=== PATIENT | male | born 1940 | race African-American/Black ===

== ENCOUNTER 2023-04-25 10:19 | Inpatient (IN) | payer OTHER, MEDICAID ==
[~2023-04-25] VITALS: Ht 170.2 cm; Wt 70.0 kg
[~2023-04-25 10:19] MED LIST: BACL10TA PO; CELE200C PO; GABA300C PO; NOR10T GT; SIMV-270 PO; [UNRECOGNIZED DRUG - CODE] OR
[2023-04-25] MEDS ORDERED: SODIUM CHLORIDE 0.9% 1,000 ML IV ONE (10:30)
[2023-04-25 11:15] LABS: Basophils # (auto) 0 10 ^3/uL (0-0.2); Basophils % (auto) 0.7 % (0.0-2.0); Eosinophils # (auto) 0 10 ^3/uL (0-0.8); Eosinophils % (auto) 0.4 % (0.0-7.0); Hematocrit 40.9 % (41.0-53.0); Hemoglobin 13.4 g/dL (13.5-17.5); Lymphocytes # (auto) 1.1 10 ^3/uL (0.4-5.4); Lymphocytes % (auto) 18.5 % (10.0-50.0); Mean Corpuscular Hemoglobin 28.5 pg (28.0-32.0); Mean Corpuscular Hgb Conc. 32.9 g/dL (32.0-36.0); Mean Corpuscular Volume 86.6 fL (80.0-100.0); Monocytes # (auto) 0.3 10 ^3/uL (0-1.3); Monocytes % (auto) 4.9 % (0.0-12.0); Neutrophils # (auto) 4.5 10 ^3/uL (1.6-8.6); Neutrophils % (auto) 75.5 % (37.0-80.0); Red Blood Cells 4.72 10^6/uL (4.5-5.90); Red Cell Distribution Width 14.3 % (11.8-14.3)
[2023-04-25 11:24] LABS: INR 1.01 (0.9-1.15); Prothrombin Time 10.6 sec (9.3-11.8)
[2023-04-25 11:27] LABS: Alanine Aminotransferase 13 U/L (7-40); Albumin 4.3 g/dL (3.2-4.8); Alkaline Phosphatase 61 U/L (46-116); Anion Gap 5 (5-15); Aspartate Aminotransferase 13 U/L (13-40); BUN/Creatinine Ratio 21.2 (10.0-20.0); Blood Urea Nitrogen 24 mg/dL (9-23); Calcium 9.2 mg/dL (8.7-10.4); Carbon Dioxide 28 mmol/L (20-30); Chloride 107 mmol/L (98-107); Glucose 96 mg/dL (74-106); Lipase 57 U/L (12-53); Magnesium 2.1 mg/dL (1.6-2.6); Potassium 4.1 mmol/L (3.5-5.1); Sodium 140 mmol/L (136-145)
[2023-04-25 11:28] LABS: Bilirubin, Total 0.8 mg/dL (0.2-1.0); Total Protein 7.3 g/dL (5.7-8.2)
[2023-04-25] MEDS ORDERED: MORPHINE SULFATE INJ 2 MG/ml SYRG IV PRN (11:45)
[2023-04-25] MEDS ORDERED: hydrALAZINE HCL 20 MG/ML VL IV PRN (11:45)
[2023-04-25] MEDS ORDERED: LISINOPRIL 5 MG TAB PO ONE (11:45)
[2023-04-25] MEDS ORDERED: ACETAMINOPHEN 325 MG TAB PO PRN (11:45)
[2023-04-25] MEDS ORDERED: NITROGLYCERIN 0.4 MG SL TAB SL PRN (11:45)
[2023-04-25] MEDS ORDERED: ASPirin 325 MG TAB PO ONE (11:45)
[2023-04-25 12:31] LABS: Triglycerides 80 mg/dL (< 150)
[2023-04-25 12:32] LABS: LDL Cholesterol 98 mg/dL (< 100)
[2023-04-25 12:33] LABS: Cholesterol 178 mg/dL (< 200); HDL Cholesterol 64 mg/dL (40-59)
[2023-04-25 12:49] LABS: Urine Bacteria NONE SEEN /hpf (None Seen); Urine Blood Negative /uL (Negative); Urine Clarity Clear (Clear); Urine Protein, UAD Negative (Negative); Urine Specific Gravity 1.016 (1.001-1.035); Urine Urobilinogen Normal (Negative); Urine WBC 2 /hpf (0 - 3)
[2023-04-25 12:50] LABS: Urine Color Yellow (Yellow)
[2023-04-25] MEDS: GABAPENTIN 300 MG CAP PO SCH ×2 (14:37→22:37)
[2023-04-25] MEDS: SODIUM CHLORIDE 0.9% 1,000 ML IV SCH (15:25)
[2023-04-25 15:30] VITALS: PULSE 58; RESP 16; O2SAT 93
[2023-04-25 16:04] LABS: Base Excess -0.9 mmol/L (-2.0-2.0)
[2023-04-25] MEDS ORDERED: ALBUTEROL MEDNEB 2.5 mg/3ml NEB NEB PRN (16:30)
[2023-04-25 16:31] VITALS: BP 135/72; PULSE 58; RESP 16; TEMP 97.9; O2SAT 93
[2023-04-25 18:30] VITALS: O2SAT 95
[2023-04-25 19:20] VITALS: PULSE 59; RESP 18; O2SAT 95
[2023-04-25] MEDS ORDERED: ATORVASTATIN 20 MG TAB PO SCH (22:00)
[2023-04-25] MEDS: FAMOTIDINE 20 MG TAB PO SCH (22:38)
[2023-04-25] MEDS: CELECOXIB 100 MG CAP PO SCH (23:54)
[2023-04-26] MEDS: SODIUM CHLORIDE 0.9% 1,000 ML IV SCH (02:48)
[2023-04-26 04:29] LABS: Basophils # (auto) 0 10 ^3/uL (0-0.2); Basophils % (auto) 0.7 % (0.0-2.0); Eosinophils # (auto) 0.2 10 ^3/uL (0-0.8); Eosinophils % (auto) 3.1 % (0.0-7.0); Hematocrit 37.4 % (41.0-53.0); Hemoglobin 12.3 g/dL (13.5-17.5); Lymphocytes # (auto) 1.9 10 ^3/uL (0.4-5.4); Lymphocytes % (auto) 39.6 % (10.0-50.0); Mean Corpuscular Hgb Conc. 32.8 g/dL (32.0-36.0); Mean Corpuscular Volume 85.4 fL (80.0-100.0); Monocytes # (auto) 0.5 10 ^3/uL (0-1.3); Monocytes % (auto) 10.3 % (0.0-12.0); Neutrophils # (auto) 2.2 10 ^3/uL (1.6-8.6); Neutrophils % (auto) 46.3 % (37.0-80.0); Nucleated Red Blood Cells % 0.2 %; Red Blood Cells 4.38 10^6/uL (4.5-5.90); Red Cell Distribution Width 14.4 % (11.8-14.3); White Blood Cell 4.9 10^3/uL (4.4-10.8)
[2023-04-26 04:49] LABS: Albumin 3.5 g/dL (3.2-4.8); Alkaline Phosphatase 48 U/L (46-116); Anion Gap 7 (5-15); Aspartate Aminotransferase 10 U/L (13-40); BUN/Creatinine Ratio 18.6 (10.0-20.0); Bilirubin, Total 0.7 mg/dL (0.2-1.0); Blood Urea Nitrogen 21 mg/dL (9-23); Calcium 8.8 mg/dL (8.7-10.4); Carbon Dioxide 26 mmol/L (20-30); Chloride 108 mmol/L (98-107); Glucose 83 mg/dL (74-106); Potassium 4.2 mmol/L (3.5-5.1); Sodium 141 mmol/L (136-145); Total Protein 6.2 g/dL (5.7-8.2)
[2023-04-26 05:00] LABS: Alanine Aminotransferase 9 U/L (7-40)
[2023-04-26] MEDS: GABAPENTIN 300 MG CAP PO SCH ×3 (05:57→21:51)
[2023-04-26 06:15] VITALS: O2SAT 96
[2023-04-26 07:30] VITALS: O2SAT 97
[2023-04-26] MEDS ORDERED: LISINOPRIL 5 MG TAB PO SCH ×2 (10:00→16:45)
[2023-04-26] MEDS: ASPirin 81 mg TAB PO SCH (10:17)
[2023-04-26] MEDS: ENOXAPARIN SOD 40 MG/0.4 ML SYRINGE SC SCH (10:18)
[2023-04-26] MEDS: CELECOXIB 100 MG CAP PO SCH ×2 (10:31→22:28)
[2023-04-26 11:27] LABS: Folate (Folic Acid) 13.47 ng/mL (>5.38)
[2023-04-26] MEDS: NICOTINE 21MG/24 HR TOPICAL PATCH TD SCH (12:09)
[2023-04-26] MEDS ORDERED: CYANOCOBALAMIN (B-12) 1000 MCG/1 ML VIAL IM ONE (12:30)
[2023-04-26] MEDS ORDERED: LISINOPRIL 5 MG TAB PO ONE (18:00)
[2023-04-26 20:00] VITALS: PULSE 49; RESP 20; O2SAT 99
[2023-04-26] MEDS: FAMOTIDINE 20 MG TAB PO SCH (21:51)
[2023-04-26] MEDS ORDERED: ATORVASTATIN 20 MG TAB PO SCH (22:00)
[2023-04-27] VITALS (9 sets, daily range): BP systolic 104–144; BP diastolic 56–72; PULSE 43–83; RESP 16–19; TEMP 97.8–98.6; O2SAT 94–98
[2023-04-27 06:20] LABS: Anion Gap 7 (5-15); Calcium 8.8 mg/dL (8.7-10.4); Carbon Dioxide 27 mmol/L (20-30); Chloride 107 mmol/L (98-107); Sodium 141 mmol/L (136-145)
[2023-04-27 06:26] LABS: BUN/Creatinine Ratio 16.8 (10.0-20.0); Blood Urea Nitrogen 20 mg/dL (9-23); Glucose 82 mg/dL (74-106); Magnesium 2.2 mg/dL (1.6-2.6)
[2023-04-27] MEDS: GABAPENTIN 300 MG CAP PO SCH ×2 (06:26→15:10)
[2023-04-27 06:33] LABS: Basophils # (auto) 0 10 ^3/uL (0-0.2); Basophils % (auto) 0.9 % (0.0-2.0); Eosinophils # (auto) 0.2 10 ^3/uL (0-0.8); Eosinophils % (auto) 3.3 % (0.0-7.0); Hematocrit 39.1 % (41.0-53.0); Hemoglobin 12.8 g/dL (13.5-17.5); Lymphocytes # (auto) 1.9 10 ^3/uL (0.4-5.4); Lymphocytes % (auto) 34.8 % (10.0-50.0); Mean Corpuscular Hemoglobin 28.1 pg (28.0-32.0); Mean Corpuscular Hgb Conc. 32.6 g/dL (32.0-36.0); Mean Corpuscular Volume 86.1 fL (80.0-100.0); Monocytes # (auto) 0.6 10 ^3/uL (0-1.3); Monocytes % (auto) 10.6 % (0.0-12.0); Neutrophils # (auto) 2.7 10 ^3/uL (1.6-8.6); Neutrophils % (auto) 50.4 % (37.0-80.0); Nucleated Red Blood Cells % 0.1 %; Red Blood Cells 4.55 10^6/uL (4.5-5.90); Red Cell Distribution Width 14.6 % (11.8-14.3); White Blood Cell 5.4 10^3/uL (4.4-10.8)
[2023-04-27 07:07] LABS: RPR Non Reactive (Non Reactive)
[2023-04-27] MEDS: ASPirin 81 mg TAB PO SCH (09:28)
[2023-04-27] MEDS: CELECOXIB 100 MG CAP PO SCH (09:29)
[2023-04-27] MEDS: ENOXAPARIN SOD 40 MG/0.4 ML SYRINGE SC SCH (09:32)
[2023-04-27] MEDS: NICOTINE 21MG/24 HR TOPICAL PATCH TD SCH (09:33)
[2023-04-27] MEDS ORDERED: SPIRONOLACTONE 25 MG TAB PO SCH (10:00)
[2023-04-27] MEDS ORDERED: CYANOCOBALAMIN 500 MCG TAB PO SCH (10:00)
[2023-04-27] MEDS ORDERED: LISINOPRIL 10 MG TAB PO SCH (10:00)
[2023-04-27] MEDS ORDERED: SPIR25TA8 PO (12:38)
[2023-04-27] MEDS ORDERED: CYAN-17 PO (12:38)
[2023-04-27] MEDS ORDERED: ASPI1TAB20 PO (12:38)
[2023-04-27] MEDS ORDERED: NIC21P TOP (12:38)
[2023-04-27] MEDS ORDERED: LISI-275 PO (12:38)
[2023-04-27] MEDS ORDERED: ATOR40TA52 PO (12:38)
== END 2023-04-27 16:33 | disposition home or self-care (01) | DRG 309 ==
LOC: ER 10:19 → EDBD 10:19 → TELE 11:48 → TELE-WESTW 04-26 21:23
PROVIDERS: ADMIT Internal Medicine; ATTEND Student in an Organized Health Care Education/Training Program
DX: I49.5 Sick sinus syndrome (principal); I50.22 Chronic systolic (congestive) heart failure; I42.0 Dilated cardiomyopathy; E86.0 Dehydration; I11.0 Hypertensive heart disease with heart failure; I27.20 Pulmonary hypertension, unspecified; J44.9 Chronic obstructive pulmonary disease, unspecified; F14.10 Cocaine abuse, uncomplicated; R29.6 Repeated falls; I35.2 Nonrheumatic aortic (valve) stenosis with insufficiency; I16.0 Hypertensive urgency; E53.8 Deficiency of other specified B group vitamins; I25.10 Atherosclerotic heart disease of native coronary artery without angina pectoris; Z72.0 Tobacco use; Z71.6 Tobacco abuse counseling
CPT/HCPCS: 36415; 36600; 70450; 70551; 71045; 72125; 73030; 80048; 80053; 80061; 81001; 82306; 82607; 82746; 82805; 83036; 83690; 83735; 83880; 84443; 84484; 85025; 85610; 86141; 86592; 93005; 93306; 93886; 96360; 96361; 97110; 97116; 97163; 97530; G0378

== ENCOUNTER 2023-05-08 13:33 | Emergency (ER) | payer OTHER, MEDICAID ==
[~2023-05-08] VITALS: Ht 172.7 cm; Wt 82.0 kg
[~2023-05-08 13:33] MED LIST changes: +ASPI1TAB20 PO; +ATOR40TA52 PO; +CYAN-17 PO; +LISI-275 PO; +NIC21P TOP; +SPIR25TA8 PO
[2023-05-08] MEDS ORDERED: ONDANSETRON ODT 4 MG TAB PO ONE (14:15)
[2023-05-08] MEDS ORDERED: DICYCLOMINE HCL 10 MG CAP PO ONE (14:15)
[2023-05-08 14:45] LABS: Basophils # (auto) 0 10 ^3/uL (0-0.2); Basophils % (auto) 0.2 % (0.0-2.0); Eosinophils # (auto) 0 10 ^3/uL (0-0.8); Eosinophils % (auto) 0.2 % (0.0-7.0); Hemoglobin 13.3 g/dL (13.5-17.5); Lymphocytes # (auto) 0.8 10 ^3/uL (0.4-5.4); Lymphocytes % (auto) 8.6 % (10.0-50.0); Mean Corpuscular Hemoglobin 28.4 pg (28.0-32.0); Mean Corpuscular Hgb Conc. 33.2 g/dL (32.0-36.0); Mean Corpuscular Volume 85.4 fL (80.0-100.0); Monocytes # (auto) 0.6 10 ^3/uL (0-1.3); Monocytes % (auto) 5.8 % (0.0-12.0); Neutrophils # (auto) 8.1 10 ^3/uL (1.6-8.6); Neutrophils % (auto) 85.2 % (37.0-80.0); Red Blood Cells 4.69 10^6/uL (4.5-5.90); Red Cell Distribution Width 14.5 % (11.8-14.3); White Blood Cell 9.6 10^3/uL (4.4-10.8)
[2023-05-08 15:02] LABS: Alanine Aminotransferase 12 U/L (7-40); Alkaline Phosphatase 62 U/L (46-116); Anion Gap 7 (5-15); Aspartate Aminotransferase 15 U/L (13-40); Bilirubin, Total 0.6 mg/dL (0.2-1.0); Blood Urea Nitrogen 33 mg/dL (9-23); Calcium 9.5 mg/dL (8.7-10.4); Carbon Dioxide 27 mmol/L (20-30); Chloride 106 mmol/L (98-107); Glucose 107 mg/dL (74-106); Magnesium 2.1 mg/dL (1.6-2.6); Potassium 4.6 mmol/L (3.5-5.1); Sodium 140 mmol/L (136-145); Total Protein 6.7 g/dL (5.7-8.2)
[2023-05-08 15:06] LABS: INR 1.04 (0.9-1.15); Partial Thromboplastin Time 34.9 SEC (24.5-34.5); Prothrombin Time 10.9 sec (9.3-11.8)
[2023-05-08 18:56] VITALS: BP 119/51; PULSE 46; RESP 12; TEMP 97.6; O2SAT 97
[2023-05-08] MEDS ORDERED: ACET5SOL5 PO ×2 (23:26)
== END 2023-05-08 19:40 | disposition left against medical advice (07) ==
LOC: EDBD 13:33 → ER 13:33
DX: R42 Dizziness and giddiness (principal); Z79.899 Other long term (current) drug therapy; Z79.82 Long term (current) use of aspirin
CPT/HCPCS: 36415; 71045; 80053; 83735; 83880; 84484; 85025; 85379; 85610; 85730; 93005

== ENCOUNTER 2023-05-19 21:28 | Emergency (ER) | payer OTHER, MEDICAID ==
[~2023-05-19] VITALS: Ht 182.9 cm; Wt 54.8 kg
[2023-05-20] MEDS ORDERED: ALBUAER3 IN (03:29)
[2023-05-20] MEDS ORDERED: AZITTAB PO (03:29)
[2023-05-20 03:30] VITALS: BP 145/80; PULSE 80; RESP 16; TEMP 98.6; O2SAT 97
[2023-05-20] MEDS ORDERED: predniSONE 5 MG TAB PO ONE (03:30)
[2023-05-20] MEDS ORDERED: HYDROcodone-ACET 5/325MG TAB PO ONE (03:30)
== END 2023-05-20 06:01 | disposition home or self-care (01) ==
LOC: EDBD 21:28 → ER 21:28
DX: S76.011A Strain of muscle, fascia and tendon of right hip, initial encounter (principal); M51.36 Other intervertebral disc degeneration, lumbar region; G89.29 Other chronic pain; M25.551 Pain in right hip; M75.31 Calcific tendinitis of right shoulder; J18.9 Pneumonia, unspecified organism; I10 Essential (primary) hypertension; K21.9 Gastro-esophageal reflux disease without esophagitis; E78.5 Hyperlipidemia, unspecified; Z79.82 Long term (current) use of aspirin; Z79.2 Long term (current) use of antibiotics; Z79.899 Other long term (current) drug therapy; X58.XXXA Exposure to other specified factors, initial encounter; Y93.89 Activity, other specified; Y92.89 Other specified places as the place of occurrence of the external cause; Y99.8 Other external cause status
CPT/HCPCS: 72131; 72192; 73200; 93005; 99284; J7512

== ENCOUNTER 2024-10-26 12:57 | Inpatient (IN) | payer OTHER, MEDICAID ==
[~2024-10-26] VITALS: Ht 177.8 cm; Wt 62.2 kg
[~2024-10-26 12:57] MED LIST changes: +ALBUAER3 IN; +AZITTAB PO
--- NOTE | 2024-10-26 13:36 | ED.PDOC ---
General HPI Comments PMHx: Dementia, GERD, High Lipids SHx: Hip Sx Social Hx: Occasional Alcohol use, Tobacco use but Denies Substance use HPI: Poor Historian. 84-year-old male accompanied by his family member at bedside. Patient states having 2-3 day history of urinary symptoms of hematuria burning with urination generalized weakness and dizziness. Patient ambulatory in the ED. Denies any other acute symptoms. REVIEW OF SYSTEMS: CONSTITUTIONAL: Denies acute: fever, diaphoresis, chills, HEAD: Denies acute: headache, photophobia Eyes: Denies acute: Double vision, vision loss, eye pain, eye discharge. EARS: Denies acute: tinnitus, hearing loss, ear discharge, ear pain, THROAT: Denies acute: sore throat, swelling, difficulty swallowing , pain with swallowing, change in voice. NECK: Denies acute: neck pain, neck swelling, stiff neck. HEART: Denies acute : chest pain, palpitations, LUNGS: Denies acute: SOB, wheezing, cough, hemoptysis ABDOMEN: Denies acute: abdominal pain, Nausea, Vomiting, diarrhea, melena , hematemesis, hematochezia SKIN: Denies acute: rash, redness, lesions, itchiness. EXTREMITIES: Denies acute: calf pain, numbness, tingling, weakness, denies pain in extremity. Denies acute: Low back pain. Neuro: Denies acute: focal neurological deficit, motor or sensory focal neurological deficit, tremors, seizure like activity, confusion, change in mental status, loss of bowel or bladder function, cauda equina like symptoms. : Denies acute: flank pain, PSYCH: Denies acute: hallucination, suicidal ideation, homicidal ideation. PHYSICAL EXAM: General: ----mild to moderate----acute distress, awake and alert. Head: normocephalic, atraumatic. Neck: supple, trachea is midline, no swelling. Throat: Normal phonation. Eyes:, no erythema, no purulent discharge, no proptosis, no icterus. Heart: regular rate, regular rhythm, no significant murmur appreciated. Lungs: no apparent respiratory distress, Able to speak in full sentences. No wheezing, no rhonchi, no crackles. No stridors Clear to auscultation bilaterally. Abdomen: Suprapubic minimal tender to palpation, non distended, soft, no guarding, no rebound, + bowel sounds. Neuro: Awake, Alert, oriented to name, self, situation, follows commands. At baseline per family member. GCS=15. Speech is normal. Skin: no petechia, no purpura, no cyanosis, non-pale, not jaundice. Lower extremities: --no - Pitting edema no deformity, no focal swelling, no calf TTP. Makes eye contact. moves all four extremities. Face: no apparent facial droop. Ambulating in the ED independently. ED COURSE: Time Seen by MD: 13:30 Primary Care Provider: LINUS Reviewed notes: Nurses Notes, Allergies Allergies: Coded Allergies: NO KNOWN ALLERGIES (Unverified , 12/19/13) Home Meds Active Scripts Albuterol Sulfate (VENTOLIN MDI) 90 Mcg Ih, 1 PUFF IN Q4HR, #1 INH As needed for cough nasal congestion shortness of breath or wheeze Prov:JULIA GRANADOS [employer] LIBRARIAN 05/20/23 Azithromycin (Zithromax Z-Pk) 250 Mg Tab, 1 TAB PO DAILY for 5 Days, #6 TAB 2 tablets today then start 1 tablet tomorrow for 5 days Prov:JULIA GRANADOS [employer]ARIAN 05/20/23 Aspirin (Aspir-81) 81 Mg Tab, 1 TAB PO DAILY, #30 TAB 3 Refills Prov:TAMI LEHMAN RESIDENT 04/27/23 Atorvastatin Calcium (ATORVASTATIN CALCIUM) 40 Mg Tab, 1 TAB PO DAILY, #30 TAB 3 Refills Prov:TAMI LEHMAN RESIDENT 04/27/23 Cyanocobalamin (B12) 1,000 Mcg Cap, 1000 MCG PO DAILY for 30 Days, #30 CAP 2 Refills Prov:TAMI LEHMAN RESIDENT 04/27/23 Spironolactone (Spironolactone) 25 Mg Tab, 1 TAB PO DAILY for 30 Days, #30 TAB 3 Refills Prov:TAMI LEHMAN RESIDENT 04/27/23 Lisinopril (Lisinopril) 5 Mg Tab, 5 MG PO DAILY for 30 Days, #30 TAB 3 Refills Prov:TAMI LEHMAN RESIDENT 04/27/23 Nicotine (Nicoderm 21MG/24HR) 1 Patch Ph, 1 PATCH TOP DAILY, #28 PATCH 1 Refill Prov:TAMI LEHMAN RESIDENT 04/27/23 Reported Medications Simvastatin (Zocor) 20 Mg Tab, 20 MG PO DAILY, #30 MG 0 Refills 12/19/13 Celecoxib (Celebrex) 200 Mg Cap, 200 MG PO BID, CAP 12/19/13 Gabapentin (Neurontin) 300 Mg Cap, 300 MG PO TID, CAP 12/19/13 Baclofen (Baclofen) 10 Mg Tab, 10 MG PO TID, TAB 12/19/13 Hydrocodone-Acetaminophen ([place] 10/325MG) 1 Tab Tb, 1 TAB GT TID 12/19/13 Ranitidine Hcl (EQ RANITIDINE) 150 Mg Tab, 150 MG OR BID, TAB 12/19/13 Information Source: Patient, Relative Past Medical History PAST MEDICAL HISTORY: Dementia, GERD, High Lipids, HTN Surgical History (Other): Hip Sx Family History Family History: Reviewed,noncontributory to illness, Unknown Social History Smoker: Cigarettes Alcohol: Occasionally Drugs: Denies Drug Use Lives In: Home Was a procedure done? Was a procedure done?: No Differential Diagnosis Kidney stone (Female): N/A Kidney stone (Male): N/A Urinary Problem (Male): Bladder Outlet, Bladder Obstruction, Epididymitis, Prostatitis, Plelonephritis, Post op Complications, Renal Failure, Urethritis, Urinary Retention, Urolithiasis, UTI, Other X-Ray, Labs, Meds, VS Vital Signs Date Time Temp Pulse Resp B/P (MAP) Pulse Ox O2 Delivery O2 Flow Rate FiO2 10/26/24 14:15 69 17 95 Room Air 10/26/24 14:15 98.0 77 16 102/72 (82) 95 98.0 10/26/24 13:32 98.3 75 21 118/74 (89) 96 98.3 Lab Test 10/26/24 17:06 10/26/24 13:50 10/26/24 13:28 Range/Units Urine Creatinine 45.62 30.0-125.0 mg/dL Urine Sodium 77 40-220 mmol/L White Blood Count 6.4 4.4-10.8 10^3/uL Red Blood Count 4.70 4.5-5.90 10^6/uL Hemoglobin 13.2 L 13.5-17.5 g/dL Hematocrit 40.2 L 41.0-53.0 % Mean Corpuscular Volume 85.4 80.0-100.0 fL Mean Corpuscular Hemoglobin 28.1 28.0-32.0 pg Mean Corpuscular Hemoglobin Concent 32.9 32.0-36.0 g/dL Red Cell Distribution Width 13.9 11.8-14.3 % Platelet Count 206 140-450 10^3/uL Mean Platelet Volume 7.8 6.9-10.8 fL Neutrophils (%) (Auto) 63.9 37.0-80.0 % Lymphocytes (%) (Auto) 24.7 10.0-50.0 % Monocytes (%) (Auto) 8.7 0.0-12.0 % Eosinophils (%) (Auto) 1.8 0.0-7.0 % Basophils (%) (Auto) 0.9 0.0-2.0 % Neutrophils # (Auto) 4.1 1.6-8.6 10 ^3/uL Lymphocytes # (Auto) 1.6 0.4-5.4 10 ^3/uL Monocytes # (Auto) 0.6 0-1.3 10 ^3/uL Eosinophils # (Auto) 0.1 0-0.8 10 ^3/uL Basophils # (Auto) 0.1 0-0.2 10 ^3/uL Nucleated Red Blood Cells 0.0 % Sodium Level 139 136-145 mmol/L Potassium Level 4.2 3.5-5.1 mmol/L Chloride Level 106 98-107 mmol/L Carbon Dioxide Level 28 20-31 mmol/L Anion Gap 5 5-15 Blood Urea Nitrogen 31 H 9-23 mg/dL Creatinine 1.60 H 0.700-1.30 mg/dL Glomerular Filtration Rate Calc 42 >90 mL/min BUN/Creatinine Ratio 19.4 10.0-20.0 Serum Glucose 92 74-106 mg/dL Lactic Acid Level 1.3 0.4-2.0 mmol/L Calcium Level 10.1 8.7-10.4 mg/dL Total Bilirubin 0.8 0.2-1.0 mg/dL Aspartate Amino Transferase (AST) 18 13-40 U/L Alanine Aminotransferase (ALT) 10 7-40 U/L Alkaline Phosphatase 64 46-116 U/L Troponin I High Sensitivity 14 </=54 ng/L Total Protein 7.6 5.7-8.2 g/dL Albumin 4.6 3.2-4.8 g/dL Urine Color Light-yellow Yellow Urine Clarity Clear Clear Urine pH 5.0 5.0-9.0 Urine Specific [place] 1.010 1.001-1.035 Urine Protein Negative Negative Urine Ketones Negative Negative Urine Blood Negative Negative /uL Urine Nitrite Negative Negative Urine Bilirubin Negative Negative Urine Urobilinogen Normal Negative mg/dL Urine Leukocyte Esterase Negative Negative /uL Urine RBC <1 0 - 3 /hpf Urine Microscopic WBC 1 0-3 /HPF Urine Squamous Epithelial Cells Few <5 /hpf Urine Bacteria None seen None Seen /hpf Urine Glucose Normal Normal mg/dL Current Medications Medications (Trade) Dose Ordered Sig/Dom Route Start Time Stop Time Status Last Admin Ceftriaxone Sodium 50 ml @ 100 mls/hr ONCE ONCE IV 10/26/24 13:30 10/26/24 13:59 DC 10/26/24 14:21 Sodium Chloride 1,000 ml @ 1,000 mls/hr Q1H ONCE IV 10/26/24 13:45 10/26/24 14:44 DC 10/26/24 14:14 Sepsis from UTI and nephrolithiasis Secondary Diagnosis: Hypertension Morbid Obesity Septic Shock Acute Respiratory Failure due to Atelectasis PROCEDURE(s): ABPL - CT AB PEL WO CON-NO ORAL OR IV REASON: Urinary symptoms, hematuria ORDER NUMBER(s): [id number], ACCESSION NUMBER(s): [id number] CLINICAL INFORMATION: 84 years old, Male; Urinary symptoms, hematuria. TECHNIQUE: Axial CT images of the abdomen and pelvis were obtained without IV contrast. Coronal and sagittal reformatted images were obtained, reviewed, and stored. Evaluation of the parenchymal organs is limited without IV contrast. Evaluation of the bowel and mesentery is limited without oral contrast. All CT scans at this medical facility are performed using dose modulation techniques as appropriate to a performed exam including the following: Automated exposure control was utilized; adjustment of the MA and/or KV according to patient size; and use of iterative reconstruction technique. CTDIvol = 8.64 mGy DLP = 394.09 mGy-cm COMPARISON: None FINDINGS: Lung bases: Mild atelectasis in the lung bases. Liver: Grossly unremarkable in its noncontrast enhanced appearance. No abnormal density or focal lesion identified. Biliary: No calcified gallstones or biliary ductal dilatation. Spleen: Very small spleen. Pancreas: Poorly visualized due to motion artifact. Adrenal glands: Poorly visualized due to motion artifact. Kidneys: No hydronephrosis. Multiple bilateral renal cysts. No renal or ureteral calculi visualized. Ureters are not well evaluated due to motion artifact. Aorta/Vascular: Dense atherosclerotic calcification. No abdominal aortic aneurysm. Retroperitoneum: Limited evaluation due to motion artifact. Bowel/mesentery: Nonspecific nondilated fluid-filled small bowel loops. No small bowel obstruction. Appendix is not visualized. Moderate stool in the colon. Pelvic organs: Beam hardening artifact from the bilateral hip prostheses limits visualization. Bladder: Poorly visualized due to beam hardening artifact. Abdominal wall: Grossly unremarkable. Bones: No acute fracture or suspicious intraosseous lesion. Bilateral hip prostheses appear intact, although the femoral components are incompletely visualized. There is associated prominent beam hardening artifact which limits evaluation of the pelvis. IMPRESSION: 1. Motion limited study. Examination of the pelvic structures also limited due to beam hardening artifact from the patient's bilateral hip prostheses. 2. No hydronephrosis. No renal or ureteral calculi visualized, although the ur eters are poorly evaluated due to motion artifact. 3. Nonspecific nondilated fluid-filled small bowel loops. Findings may be seen with ileus or enteritis in the appropriate clinical setting. No small bowel obstruction. 4. Additional findings as described above. [place] [id number] Ph: [phone] DIAGNOSTIC IMAGING Diagnostic Imaging Report : [id number] Signed PATIENT: GAGAN CUEVAS ACCT: [id number] UNIT: [id number] : 1940 LOC: ER ROOM / BED: / AGE / SEX: 84 / M ADM STATUS: REG ER SERVICE 1336 ORDERING PHYSICIAN: SUDHIR BELTRAN DO PROCEDURE(s): CXRP - CHEST PORTABLE REASON: dizzy, weak ORDER NUMBER(s): [id number], ACCESSION NUMBER(s): [id number] EXAM: XY CHEST PORTABLE REASON FOR EXAM: dizzy, weak TECHNIQUE: 1 view of the chest COMPARISON: XY CHEST PORTABLE on DOS: 05/08/23 FINDINGS: LUNGS: Oval-shaped presumed pulmonary mass with possible spiculation located within the left upper lobe measuring up to 3.1 cm. MEDIASTINUM: Unremarkable BONES: No acute osseous abnormality. OTHER: None IMPRESSION: 1. Oval-shaped presumed pulmonary mass with possible spiculation located within the left upper lobe measuring up to 3.1 cm. 2. Recommend further evaluation with CT of the chest with contrast. ATED BY: DEVYN ZHU MD DICTATED DATE/TIME: 10/26/24 1403 SIGNED BY: DEVYN ZHU MD SIGNED DATE/TIME: 10/26/24 140 CC: Time of 1ST Reevaluation: 14:00 Reevaluation 1ST: Unchanged Patient Education/Counseling: Diagnosis, Treatment Family Education/Counseling: Diagnosis, Treatment Comments Patient presented with the above HPI.---urinary symptoms/hematuria---workup was initiated. patient was found with the above mentioned diagnosis. the following medications were ordered: please refer to order lists of meds and tests obtained by myself Dr. Beltran. Patient ED course and VS have been stabilized. Patient has been reassessed in the ED and remained in a stable condition. Patient/family voices understanding and is agreeable with plan. Patient has been observed in the ED adequate length of time to insure improvement/stability. Escalation of care considered: Consideration of escalation to observation or admission Antibiotics initiated. Patient was ADMITTED to the medicine team for further evaluation and treatment of their presentation. All the reports of any imaging studies that were ordered by myself were reviewed by myself. Departure 1 Departure Time of Disposition: 14:54 Impression: Primary Impression: Lung mass Additional Impressions: Abnormal finding on CT scan Hematuria Disposition: ADMITTED INPATIENT Condition: Guarded Discharged With: Self Critical Care Note Critical Care Time?: No I personally scribed for SUDHIR BELTRAN DO ([email or web address]) on 10/26/24 at 13:36. Electronically submitted by Petros Belle ([email or web address]). I personally scribed for SUDHIR BELTRAN DO ([email or web address]) on 10/26/24 at 14:53. Electronically submitted by Petros Belle ([email or web address]). SUDHIR BELTRAN DO Oct 26, 2024 13:36
[2024-10-26 14:03] LABS: Basophils # (auto) 0.1 10 ^3/uL (0-0.2); Basophils % (auto) 0.9 % (0.0-2.0); Eosinophils # (auto) 0.1 10 ^3/uL (0-0.8); Eosinophils % (auto) 1.8 % (0.0-7.0); Hematocrit 40.2 % (41.0-53.0); Hemoglobin 13.2 g/dL (13.5-17.5); Lymphocytes # (auto) 1.6 10 ^3/uL (0.4-5.4); Lymphocytes % (auto) 24.7 % (10.0-50.0); Mean Corpuscular Hemoglobin 28.1 pg (28.0-32.0); Mean Corpuscular Hgb Conc. 32.9 g/dL (32.0-36.0); Mean Corpuscular Volume 85.4 fL (80.0-100.0); Monocytes # (auto) 0.6 10 ^3/uL (0-1.3); Monocytes % (auto) 8.7 % (0.0-12.0); Neutrophils # (auto) 4.1 10 ^3/uL (1.6-8.6); Neutrophils % (auto) 63.9 % (37.0-80.0); Platelet Count (auto) 206 10^3/uL (140-450); Red Cell Distribution Width 13.9 % (11.8-14.3); White Blood Cell 6.4 10^3/uL (4.4-10.8)
--- NOTE | 2024-10-26 14:06 | DVH ---
EXAM: XY CHEST PORTABLE REASON FOR EXAM: dizzy, weak TECHNIQUE: 1 view of the chest COMPARISON: XY CHEST PORTABLE on DOS: 05/08/23 FINDINGS: LUNGS: Oval-shaped presumed pulmonary mass with possible spiculation located within the left upper lo be measuring up to 3.1 cm. MEDIASTINUM: Unremarkable BONES: No acute osseous abnormality. OTHER: None IMPRESSION: 1. Oval-shaped presumed pulmonary mass with possible spiculation located within the left upper lobe m easuring up to 3.1 cm. 2. Recommend further evaluation with CT of the chest with contrast.
[2024-10-26] MEDS: SODIUM CHLORIDE 0.9% 1,000 ML IV ONE (14:14)
[2024-10-26] MEDS: cefTRIAXone 1GM/50ML D5W 50 ML IV ONE (14:21)
--- NOTE | 2024-10-26 14:23 | DVH ---
CLINICAL INFORMATION: 84 years old, Male; Urinary symptoms, hematuria. TECHNIQUE: Axial CT images of the abdomen and pelvis were obtained without IV contrast. Coronal and s agittal reformatted images were obtained, reviewed, and stored. Evaluation of the parenchymal organs is limited without IV contrast. Evaluation of the bowel and mesentery is limited without oral contras t. All CT scans at this medical facility are performed using dose modulation techniques as appropriat e to a performed exam including the following: Automated exposure control was utilized; adjustment of the MA and/or KV according to patient size; and use of iterative reconstruction technique. CTDIvol = 8.64 mGy DLP = 394.09 mGy-cm COMPARISON: None FINDINGS: Lung bases: Mild atelectasis in the lung bases. Liver: Grossly unremarkable in its noncontrast enhanced appearance. No abnormal density or focal lesi on identified. Biliary: No calcified gallstones or biliary ductal dilatation. Spleen: Very small spleen. Pancreas: Poorly visualized due to motion artifact. Adrenal glands: Poorly visualized due to motion artifact. Kidneys: No hydronephrosis. Multiple bilateral renal cysts. No renal or ureteral calculi visualized. Ureters are not well evaluated due to motion artifact. Aorta/Vascular: Dense atherosclerotic calcification. No abdominal aortic aneurysm. Retroperitoneum: Limited evaluation due to motion artifact. Bowel/mesentery: Nonspecific nondilated fluid-filled small bowel loops. No small bowel obstruction. A ppendix is not visualized. Moderate stool in the colon. Pelvic organs: Beam hardening artifact from the bilateral hip prostheses limits visualization. Bladder: Poorly visualized due to beam hardening artifact. Abdominal wall: Grossly unremarkable. Bones: No acute fracture or suspicious intraosseous lesion. Bilateral hip prostheses appear intact, a lthough the femoral components are incompletely visualized. There is associated prominent beam harden ing artifact which limits evaluation of the pelvis. IMPRESSION: 1. Motion limited study. Examination of the pelvic structures also limited due to beam hardening gabriel fact from the patient's bilateral hip prostheses. 2. No hydronephrosis. No renal or ureteral calculi visualized, although the ureters are poorly evalua blanche due to motion artifact. 3. Nonspecific nondilated fluid-filled small bowel loops. Findings may be seen with ileus or enteriti s in the appropriate clinical setting. No small bowel obstruction. 4. Additional findings as described above.
[2024-10-26 14:34] LABS: Alanine Aminotransferase 10 U/L (7-40); Albumin 4.6 g/dL (3.2-4.8); Alkaline Phosphatase 64 U/L (46-116); Anion Gap 5 (5-15); Aspartate Aminotransferase 18 U/L (13-40); BUN/Creatinine Ratio 19.4 (10.0-20.0); Bilirubin, Total 0.8 mg/dL (0.2-1.0); Calcium 10.1 mg/dL (8.7-10.4); Carbon Dioxide 28 mmol/L (20-31); Chloride 106 mmol/L (98-107); Glucose 92 mg/dL (74-106); Potassium 4.2 mmol/L (3.5-5.1); Sodium 139 mmol/L (136-145); Total Protein 7.6 g/dL (5.7-8.2)
[2024-10-26 14:35] LABS: Blood Urea Nitrogen 31 mg/dL (9-23)
[2024-10-26] MEDS ORDERED: HYDROmorphone HCL 2 MG/ML VL/or syr IV PRN (17:15)
[2024-10-26] MEDS ORDERED: DOCUSATE SOD 100 MG CAP PO PRN (17:15)
[2024-10-26] MEDS ORDERED: ONDANSETRON HCL 4 MG/2 ML VIAL IV PRN (17:15)
--- NOTE | 2024-10-26 17:23 | DVHHP2 ---
Admitting Diagnosis: Hematuria History of Present Illness Poor Historian. 84-year-old male accompanied by his family member at bedside. Patient states having 2-3 day history of urinary symptoms of hematuria burning with urination generalized weakness and dizziness. Patient ambulatory in the ED. Denies any other acute symptoms. Past Medical History: Past Surgical History: REVIEW OF SYSTEMS: CONSTITUTIONAL: Denies acute: fever, diaphoresis, chills, HEAD: Denies acute: headache, photophobia Eyes: Denies acute: Double vision, vision loss, eye pain, eye discharge. EARS: Denies acute: tinnitus, hearing loss, ear discharge, ear pain, THROAT: Denies acute: sore throat, swelling, difficulty swallowing , pain with swallowing, change in voice. NECK: Denies acute: neck pain, neck swelling, stiff neck. HEART: Denies acute : chest pain, palpitations, LUNGS: Denies acute: SOB, wheezing, cough, hemoptysis ABDOMEN: Denies acute: abdominal pain, Nausea, Vomiting, diarrhea, melena , hematemesis, hematochezia SKIN: Denies acute: rash, redness, lesions, itchiness. EXTREMITIES: Denies acute: calf pain, numbness, tingling, weakness, denies pain in extremity. Denies acute: Low back pain. Neuro: Denies acute: focal neurological deficit, motor or sensory focal neurological deficit, tremors, seizure like activity, confusion, change in mental status, loss of bowel or bladder function, cauda equina like symptoms. : Denies acute: flank pain, PSYCH: Denies acute: hallucination, suicidal ideation, homicidal ideation. PAST MEDICAL HISTORY: Dementia, GERD, High Lipids, HTN Surgical History (Other): Hip Sx Family History Family History: Reviewed,noncontributory to illness, Unknown Social History Smoker: Cigarettes Alcohol: Occasionally Drugs: Denies Drug Use Lives In: Home Patient Family History: Hypertension G8 MOTHER, Onset:50's - 60 Allergies: Coded Allergies: NO KNOWN ALLERGIES (Unverified , 12/19/13) Home Meds Active Scripts Albuterol Sulfate (VENTOLIN MDI) 90 Mcg Ih, 1 PUFF IN Q4HR, #1 INH As needed for cough nasal congestion shortness of breath or wheeze Prov:JULIA GRANADOS [employer] SUPER[employer] 05/20/23 Azithromycin (Zithromax Z-Pk) 250 Mg Tab, 1 TAB PO DAILY for 5 Days, #6 TAB 2 tablets today then start 1 tablet tomorrow for 5 days Prov:JULIA GRANADOS [employer]PER[employer] 05/20/23 Aspirin (Aspir-81) 81 Mg Tab, 1 TAB PO DAILY, #30 TAB 3 Refills Prov:TAMI LEHMAN [facility] 04/27/23 Atorvastatin Calcium (ATORVASTATIN CALCIUM) 40 Mg Tab, 1 TAB PO DAILY, #30 TAB 3 Refills Prov:TAMI LEHMAN [facility] 04/27/23 Cyanocobalamin (B12) 1,000 Mcg Cap, 1000 MCG PO DAILY for 30 Days, #30 CAP 2 Refills Prov:TAMI LEHMAN [facility] 04/27/23 Spironolactone (Spironolactone) 25 Mg Tab, 1 TAB PO DAILY for 30 Days, #30 TAB 3 Refills Prov:TAMI LEHMAN [facility] 04/27/23 Lisinopril (Lisinopril) 5 Mg Tab, 5 MG PO DAILY for 30 Days, #30 TAB 3 Refills Prov:TAMI LEHMAN [facility] 04/27/23 Nicotine (Nicoderm 21MG/24HR) 1 Patch Ph, 1 PATCH TOP DAILY, #28 PATCH 1 Refill Prov:TAMI LEHMAN [facility] 04/27/23 Reported Medications Simvastatin (Zocor) 20 Mg Tab, 20 MG PO DAILY, #30 MG 0 Refills 12/19/13 Celecoxib (Celebrex) 200 Mg Cap, 200 MG PO BID, CAP 12/19/13 Gabapentin (Neurontin) 300 Mg Cap, 300 MG PO TID, CAP 12/19/13 Baclofen (Baclofen) 10 Mg Tab, 10 MG PO TID, TAB 12/19/13 Hydrocodone-Acetaminophen ([place] 10/325MG) 1 Tab Tb, 1 TAB GT TID 12/19/13 Ranitidine Hcl (EQ RANITIDINE) 150 Mg Tab, 150 MG OR BID, TAB 12/19/13 Current Medications Current Medications Medications (Trade) Dose Ordered Sig/Dom Route PRN Reason Start Time Stop Time Status Last Admin Sodium Chloride (Saline Lock Ns) 10 ml Q8HR IV 10/26/24 22:00 Docusate Sodium (Colace Capsule) 100 mg BIDPRN PRN PO FOR CONSTIPATION 10/26/24 17:15 Acetaminophen (Tylenol Tablet) 650 mg Q6HP PRN PO PAIN SCALE 1-3 OR TEMP>100.4 10/26/24 17:15 Acetaminophen/ Hydrocodone Bitart ([place] 5/325MG Tab) 1 tab Q4HP PRN PO MODERATE PAIN (4-6 PAIN SCALE) 10/26/24 17:15 Hydromorphone HCl (Dilaudid Injection) 0.5 mg Q4HP PRN IV SEVERE PAIN (7-10 PAIN SCALE) 10/26/24 17:15 Ondansetron HCl (Zofran) 4 mg Q4HP PRN IV NAUSEA / VOMITING 10/26/24 17:15 Ceftriaxone Sodium 50 ml @ 100 mls/hr DAILY IV 10/27/24 10:00 Baclofen (Liorisal Tablet) 10 mg TID PO 10/26/24 22:00 UNV Gabapentin (Neurontin Capsule) 300 mg TID PO 10/26/24 22:00 UNV Nicotine (Nicoderm 21MG/ 24HR) 1 patch DAILY TD 10/27/24 10:00 UNV Patient Own Medication 1 tab DAILY PO 10/27/24 10:00 UNV Patient Own Medication 1,000 mcg DAILY PO 10/27/24 10:00 UNV Patient Own Medication 150 mg BID OR 10/26/24 22:00 UNV Patient Own Medication 20 mg DAILY PO 10/27/24 10:00 UNV Vital Signs Vital Signs Date Time Temp Pulse Resp B/P (MAP) Pulse Ox O2 Delivery O2 Flow Rate FiO2 10/26/24 14:15 69 17 95 Room Air 10/26/24 14:15 98.0 102/72 (82) 98.0 Physical Exam -84 years old male, frail, sitting on chair. No apparent distress HEENT-atraumatic, normocephalic Heart-regular rate and rhythm Lungs clear to auscultate Abdomen soft nontender nondistended Musculoskeletal-no edema cyanosis Neuro-AO x3, no focal deficits Results Labs Test 10/26/24 13:50 Range/Units White Blood Count 6.4 4.4-10.8 10^3/uL Red Blood Count 4.70 4.5-5.90 10^6/uL Hemoglobin 13.2 L 13.5-17.5 g/dL Hematocrit 40.2 L 41.0-53.0 % Mean Corpuscular Volume 85.4 80.0-100.0 fL Mean Corpuscular Hemoglobin 28.1 28.0-32.0 pg Mean Corpuscular Hemoglobin Concent 32.9 32.0-36.0 g/dL Red Cell Distribution Width 13.9 11.8-14.3 % Platelet Count 206 140-450 10^3/uL Mean Platelet Volume 7.8 6.9-10.8 fL Neutrophils (%) (Auto) 63.9 37.0-80.0 % Lymphocytes (%) (Auto) 24.7 10.0-50.0 % Monocytes (%) (Auto) 8.7 0.0-12.0 % Eosinophils (%) (Auto) 1.8 0.0-7.0 % Basophils (%) (Auto) 0.9 0.0-2.0 % Neutrophils # (Auto) 4.1 1.6-8.6 10 ^3/uL Lymphocytes # (Auto) 1.6 0.4-5.4 10 ^3/uL Monocytes # (Auto) 0.6 0-1.3 10 ^3/uL Eosinophils # (Auto) 0.1 0-0.8 10 ^3/uL Basophils # (Auto) 0.1 0-0.2 10 ^3/uL Nucleated Red Blood Cells 0.0 % Sodium Level 139 136-145 mmol/L Potassium Level 4.2 3.5-5.1 mmol/L Chloride Level 106 98-107 mmol/L Carbon Dioxide Level 28 20-31 mmol/L Anion Gap 5 5-15 Blood Urea Nitrogen 31 H 9-23 mg/dL Creatinine 1.60 H 0.700-1.30 mg/dL Glomerular Filtration Rate Calc 42 >90 mL/min BUN/Creatinine Ratio 19.4 10.0-20.0 Serum Glucose 92 74-106 mg/dL Lactic Acid Level 1.3 0.4-2.0 mmol/L Calcium Level 10.1 8.7-10.4 mg/dL Total Bilirubin 0.8 0.2-1.0 mg/dL Aspartate Amino Transferase (AST) 18 13-40 U/L Alanine Aminotransferase (ALT) 10 7-40 U/L Alkaline Phosphatase 64 46-116 U/L Troponin I High Sensitivity 14 </=54 ng/L Total Protein 7.6 5.7-8.2 g/dL Albumin 4.6 3.2-4.8 g/dL Primary Diagnosis Hematuria rule out urinary tract infection Lung mass Plan Chest shows lung mass Check CT chest with IV contrast to assess for lung mass Radiology consult for lung biopsy Check UA for hematuria Renal ultrasound to assess for renal abnormalities Check urine sodium, urine creatinine IV fluids for hydration Trend renal function Resume home meds Aware of renal function. In view of possible lung mass may need biopsy. risk is lower than benefit of diagnosing potential lung malignancy. will give iv hydrat ion to optimize renal function. dr. alex consult Full code SCD for DVT prophylaxis No GI prophylaxis needed Plan discussed with: Patient Problems List: (1) Lung mass Status: Acute (2) Hematuria Status: Acute Date of Service: Oct 26, 2024 Billing Provider: ROSS GUERRIER MD Common Visit Codes: [id number] INP/OBS CARE (HIGH) ROSS GUERRIER MD Oct 26, 2024 17:23
[2024-10-26 17:32] LABS: Urine Bacteria None Seen /hpf (None Seen)
[2024-10-26] MEDS: IOHEXOL 300 MG/ML 100ML BOTTLE IJ ONE (17:32)
[2024-10-26 18:05] LABS: Creatinine, Urine 45.62 mg/dL (30.0-125.0)
[2024-10-26 18:11] LABS: Urine Blood Negative /uL (Negative); Urine Clarity Clear (Clear); Urine Color Light-Yellow (Yellow); Urine Protein, UAD Negative (Negative); Urine Squamous Epithelial Cell FEW /hpf (<5); Urine Urobilinogen Normal (Negative); Urine WBC 1 /HPF (0-3)
[2024-10-26 18:15] VITALS: PULSE 66; RESP 16; O2SAT 98
[2024-10-26 18:42] VITALS: BP 135/69; PULSE 71; RESP 16; TEMP 98.1; O2SAT 97
[2024-10-26 20:00] VITALS: PULSE 71; RESP 16; O2SAT 97
[2024-10-26 21:00] VITALS: BP 135/69; PULSE 71; RESP 16; TEMP 98.1; O2SAT 97
[2024-10-26] MEDS: ATORVASTATIN 20 MG TAB PO SCH (22:01)
[2024-10-26] MEDS: BACLOFEN 10 MG TAB PO SCH (22:02)
[2024-10-26] MEDS: SODIUM CHLOR 0.9% PF (SALINE LOCK) 10ML VIAL/SYR IV SCH (22:02)
--- NOTE | 2024-10-26 22:06 | DVH ---
BILATERAL RENAL ULTRASOUND CLINICAL HISTORY: NATHAN on CKD COMPARISON: Correlation made to CT obtained earlier the same day. TECHNIQUE: High-resolution real-time grayscale imaging is performed. FINDINGS: Right kidney: Measures 9.1 cm in length. No hydronephrosis. Normal cortical thickness and echogenici ty. Multiple anechoic cysts are noted, the largest in the lower pole measuring approximately 2.9 cm in diameter. Left kidney: Measures 10.1 cm in length. No hydronephrosis. Normal cortical thickness and echogenici ty. Multiple anechoic cysts are noted, the largest in the midpole measuring approximately 4 cm in kashif meter. Bladder: Underdistended. No discrete intraluminal lesions as visualized. IMPRESSION: No hydronephrosis. Multiple bilateral renal cysts.
[2024-10-26] MEDS: HYDROcodone-ACET 5/325MG TAB PO PRN (22:11)
[2024-10-26] MEDS: LACTATED RINGER'S 1,000 ML IV ONE (22:12)
[2024-10-27] VITALS (7 sets, daily range): BP systolic 100–143; BP diastolic 53–63; PULSE 48–80; RESP 15–18; TEMP 97.9–98.8; O2SAT 94–99
[2024-10-27] MEDS: cefTRIAXone 1GM/50ML D5W 50 ML IV SCH (09:14)
[2024-10-27] MEDS: GABAPENTIN 300 MG CAP PO SCH (09:15)
[2024-10-27] MEDS: NICOTINE 21MG/24 HR TOPICAL PATCH TD SCH (09:16)
[2024-10-27] MEDS: CYANOCOBALAMIN 500 MCG TAB PO SCH (09:16)
[2024-10-27] MEDS ORDERED: PATIENTS OWN MEDICATION (Atorvastatin Calcium 1 TAB) PO SCH (10:00)
[2024-10-27 10:38] LABS: INR 1.03 (0.9-1.15); Partial Thromboplastin Time 35.9 SEC (24.5-34.5); Prothrombin Time 10.9 sec (9.3-11.8)
--- NOTE | 2024-10-27 12:04 | DVHINCON2 ---
Date of service: Oct 27, 2024 Reason for Consultation NATHAN History of Present Illness 84-year-old male past medical history of hypertension and chronic smoker presents to the hospital complaining of blood in the urine. He presented to the ER and upon evaluation was noted to have hemoptysis for which this was worked up by primary medical team. Nephrology consulted due to elevated creatinine of 1.6. He is status post ultrasound of the kidney which shows renal cysts but no signs of obstruction. His renal function has now returned to baseline function. He reports no further episodes of difficulty urinating and denies any pain or blood in the urine. Allergies: Coded Allergies: NO KNOWN ALLERGIES (Unverified , 10/28/24) Home Meds Active Scripts Albuterol Sulfate (VENTOLIN MDI) 90 Mcg Ih, 1 PUFF IN Q4HR, #1 INH As needed for cough nasal congestion shortness of breath or wheeze Prov:JULIA GRANADOS OFFICE MACHINES TEACHER 05/20/23 Azithromycin (Zithromax Z-Pk) 250 Mg Tab, 1 TAB PO DAILY for 5 Days, #6 TAB 2 tablets today then start 1 tablet tomorrow for 5 days Prov:JULIA GRANADOS OFFICE MACHINES TEACHER 05/20/23 Aspirin (Aspir-81) 81 Mg Tab, 1 TAB PO DAILY, #30 TAB 3 Refills Prov:TAMI LEHMAN RESIDENT 04/27/23 Atorvastatin Calcium (ATORVASTATIN CALCIUM) 40 Mg Tab, 1 TAB PO DAILY, #30 TAB 3 Refills Prov:TAMI LEHMAN RESIDENT 04/27/23 Cyanocobalamin (B12) 1,000 Mcg Cap, 1000 MCG PO DAILY for 30 Days, #30 CAP 2 Refills Prov:TAMI LEHMAN RESIDENT 04/27/23 Spironolactone (Spironolactone) 25 Mg Tab, 1 TAB PO DAILY for 30 Days, #30 TAB 3 Refills Prov:TAMI LEHMAN RESIDENT 04/27/23 Lisinopril (Lisinopril) 5 Mg Tab, 5 MG PO DAILY for 30 Days, #30 TAB 3 Refills Prov:TAMI LEHMAN RESIDENT 04/27/23 Nicotine (Nicoderm 21MG/24HR) 1 Patch Ph, 1 PATCH TOP DAILY, #28 PATCH 1 Refill Prov:TAMI LEHMAN RESIDENT 04/27/23 Reported Medications Simvastatin (Zocor) 20 Mg Tab, 20 MG PO DAILY, #30 MG 0 Refills 12/19/13 Celecoxib (Celebrex) 200 Mg Cap, 200 MG PO BID, CAP 12/19/13 Gabapentin (Neurontin) 300 Mg Cap, 300 MG PO TID, CAP 12/19/13 Baclofen (Baclofen) 10 Mg Tab, 10 MG PO TID, TAB 12/19/13 Hydrocodone-Acetaminophen ([place] 10/325MG) 1 Tab Tb, 1 TAB GT TID 12/19/13 Ranitidine Hcl (EQ RANITIDINE) 150 Mg Tab, 150 MG OR BID, TAB 12/19/13 Current Medications Current Medications Medications (Trade) Dose Ordered Sig/Dom Route PRN Reason Start Time Stop Time Status Last Admin Ceftriaxone Sodium 50 ml @ 100 mls/hr DAILY IV 10/27/24 10:00 10/28/24 08:23 Gabapentin (Neurontin Capsule) 300 mg DAILY PO 10/27/24 10:00 10/28/24 08:23 Nicotine (Nicoderm 21MG/ 24HR) 1 patch DAILY TD 10/27/24 10:00 10/28/24 08:26 Patient Own Medication 1 tab DAILY PO 10/27/24 10:00 10/26/24 17:55 DC Cyanocobalamin (Vitamin B-12) 1,000 mcg DAILY PO 10/27/24 10:00 10/28/24 08:25 Sodium Chloride 1,000 ml @ 60 mls/hr [id number] IV 10/27/24 11:45 10/28/24 04:25 Acetaminophen/ Hydrocodone Bitart ([place] 10/325MG Tab) 1 tab Q4HP PRN PO MODERATE PAIN (4-6 PAIN SCALE) 10/28/24 07:15 10/28/24 08:24 Family History: FH: tuberculosis G8 MOTHER, Hypertension G8 MOTHER, , Onset:50's - 60 H&P Exam Vital Signs/I&O Vital Sign Date Time Temp Pulse Resp B/P (MAP) Pulse Ox O2 Delivery O2 Flow Rate FiO2 10/28/24 05:00 97.7 51 20 113/61 (78) 95 97.7 10/27/24 20:00 Room Air* 0 21 Intake and Output 10/27/24 10/28/24 19:00 07:00 Intake Total 450 ml 200 ml Output Total 450 ml Balance 0 ml 200 ml Intake Oral 400 ml 200 ml IV Total 50 ml Output Urine Total 450 ml # Voids 1 Physical Exam male Nonacute distress Abdomen is soft No pitting edema Regular rate and rhythm Labs/Diagnostic Data Labs/Diagnostic Data Laboratory Tests Test 10/28/24 05:07 10/27/24 09:13 10/26/24 17:06 10/26/24 13:50 Range/Units Sodium Level 140 142 139 136-145 mmol/L Potassium Level 3.7 3.9 4.2 3.5-5.1 mmol/L Chloride Level 110 H 111 H 106 98-107 mmol/L Carbon Dioxide Level 25 28 28 20-31 mmol/L Anion Gap 5 3 L 5 5-15 Blood Urea Nitrogen 19 22 31 H 9-23 mg/dL Creatinine 1.19 1.24 1.60 H 0.700-1.30 mg/dL Glomerular Filtration Rate Calc 61 58 42 >90 mL/min BUN/Creatinine Ratio 16.0 17.7 19.4 10.0-20.0 Serum Glucose 81 87 92 74-106 mg/dL Calcium Level 8.9 9.1 10.1 8.7-10.4 mg/dL Prothrombin Time 10.9 9.3-11.8 sec Prothrombin Time INR 1.03 0.9-1.15 Activated Partial Thromboplast Time 35.9 H 24.5-34.5 SEC Urine Creatinine 45.62 30.0-125.0 mg/dL Urine Sodium 77 40-220 mmol/L White Blood Count 6.4 4.4-10.8 10^3/uL Red Blood Count 4.70 4.5-5.90 10^6/uL Hemoglobin 13.2 L 13.5-17.5 g/dL Hematocrit 40.2 L 41.0-53.0 % Mean Corpuscular Volume 85.4 80.0-100.0 fL Mean Corpuscular Hemoglobin 28.1 28.0-32.0 pg Mean Corpuscular Hemoglobin Concent 32.9 32.0-36.0 g/dL Red Cell Distribution Width 13.9 11.8-14.3 % Platelet Count 206 140-450 10^3/uL Mean Platelet Volume 7.8 6.9-10.8 fL Neutrophils (%) (Auto) 63.9 37.0-80.0 % Lymphocytes (%) (Auto) 24.7 10.0-50.0 % Monocytes (%) (Auto) 8.7 0.0-12.0 % Eosinophils (%) (Auto) 1.8 0.0-7.0 % Basophils (%) (Auto) 0.9 0.0-2.0 % Neutrophils # (Auto) 4.1 1.6-8.6 10 ^3/uL Lymphocytes # (Auto) 1.6 0.4-5.4 10 ^3/uL Monocytes # (Auto) 0.6 0-1.3 10 ^3/uL Eosinophils # (Auto) 0.1 0-0.8 10 ^3/uL Basophils # (Auto) 0.1 0-0.2 10 ^3/uL Nucleated Red Blood Cells 0.0 % Lactic Acid Level 1.3 0.4-2.0 mmol/L Total Bilirubin 0.8 0.2-1.0 mg/dL Aspartate Amino Transferase (AST) 18 13-40 U/L Alanine Aminotransferase (ALT) 10 7-40 U/L Alkaline Phosphatase 64 46-116 U/L Troponin I High Sensitivity 14 </=54 ng/L Total Protein 7.6 5.7-8.2 g/dL Albumin 4.6 3.2-4.8 g/dL Test 10/26/24 13:28 Range/Units Urine Color Light-yellow Yellow Urine Clarity Clear Clear Urine pH 5.0 5.0-9.0 Urine Specific [place] 1.010 1.001-1.035 Urine Protein Negative Negative Urine Ketones Negative Negative Urine Blood Negative Negative /uL Urine Nitrite Negative Negative Urine Bilirubin Negative Negative Urine Urobilinogen Normal Negative mg/dL Urine Leukocyte Esterase Negative Negative /uL Urine RBC <1 0 - 3 /hpf Urine Microscopic WBC 1 0-3 /HPF Urine Squamous Epithelial Cells Few <5 /hpf Urine Bacteria None seen None Seen /hpf Urine Glucose Normal Normal mg/dL Assessment Acute kidney injury hemodynamically mediated now resolved Hematuria per patient one time episode now resolved Patient is status post CT lung biopsy yesterday for left lung nodule Active chronic smoker reports no plan to quit Renal cysts From a nephrology standpoint patient was clinically stable patient reports that he was urinating without issue in his renal function has returned to baseline. His urinalysis does not show any microscopic hematuria. rec outpatient follow-up with Urology in regards to renal cysts No further renal recommendations at this time patient has a continue workup as per primary medical doctor and other specialists. Please reconsult if you have further questions or if condition changes Plan discussed with: Patient RIGOBERTO CADE MD Oct 27, 2024 12:04
[2024-10-27 12:13] LABS: Potassium 3.9 mmol/L (3.5-5.1); Sodium 142 mmol/L (136-145)
[2024-10-27 12:14] LABS: Anion Gap 3 (5-15); Calcium 9.1 mg/dL (8.7-10.4); Carbon Dioxide 28 mmol/L (20-31)
[2024-10-27 12:15] LABS: Chloride 111 mmol/L (98-107)
--- NOTE | 2024-10-27 12:15 | DVHPN2 ---
Subjective The patient is seen and examined at bedside. Very tired. Reviewed: Care Plan, H&P, Labs, Medications, Previous Orders, Radiology Changes from previous H/P or p: No Changes Objective Vitals Vital Signs Date Time Temp Pulse Resp B/P (MAP) Pulse Ox O2 Delivery O2 Flow Rate FiO2 10/27/24 09:00 98.0 48 15 143/57 (85) 96 98.0 10/27/24 08:12 Room Air* 0 21 Intake/Output Intake and Output 10/27/24 07:00 Intake Total 800 ml Output Total 400 ml Balance 400 ml Intake Oral 800 ml Output Urine Total 400 ml General Appearance: Alert, Cooperative, No acute distress HEENT: Atraumatic, PERRLA, EOMI, Mucous membr. moist/pink Neck: Supple Lungs: Clear to auscultation, Normal air movement Cardiovascular: Regular rate, Normal S1, Normal S2 Abdomen: Normal bowel sounds, Soft, No tenderness Neuro: Cranial nerves 3-12 NL Psych/Mental Status: Mental status NL Medications Current Medications Medications Dose Ordered Sig/Dom Route Start Time Stop Time Status Last Admin Dose Admin Sodium Chloride 10 ml Q8HR IV 10/26/24 22:00 10/27/24 06:35 10 ML Docusate Sodium 100 mg BIDPRN PRN PO 10/26/24 17:15 Acetaminophen 650 mg Q6HP PRN PO 10/26/24 17:15 Acetaminophen/ Hydrocodone Bitart 1 tab Q4HP PRN PO 10/26/24 17:15 10/26/24 22:11 1 TAB Hydromorphone HCl 0.5 mg Q4HP PRN IV 10/26/24 17:15 Ondansetron HCl 4 mg Q4HP PRN IV 10/26/24 17:15 Ceftriaxone Sodium 50 ml @ 100 mls/hr DAILY IV 10/27/24 10:00 10/27/24 09:14 100 MLS/HR Baclofen 5 mg BID PO 10/26/24 22:00 10/26/24 22:02 5 MG Gabapentin 300 mg DAILY PO 10/27/24 10:00 Nicotine 1 patch DAILY TD 10/27/24 10:00 10/27/24 09:16 1 PATCH Cyanocobalamin 1,000 mcg DAILY PO 10/27/24 10:00 Patient Own Medication 150 mg BID PO 10/26/24 22:00 Atorvastatin Calcium 10 mg HS PO 4/24/25 22:00 10/26/24 22:01 10 MG Sodium Chloride 1,000 ml @ 60 mls/hr [id number] IV 10/27/24 11:45 UNV Laboratory Results Laboratory Tests 10/26/24 13:50 10/27/24 09:13 Chemistry Test 10/26/24 13:50 10/27/24 09:13 Albumin 4.6 g/dL (3.2-4.8) Calcium Level 10.1 mg/dL (8.7-10.4) 9.1 mg/dL (8.7-10.4) Total Protein 7.6 g/dL (5.7-8.2) Coagulation Test 10/27/24 09:13 Prothrombin Time 10.9 sec (9.3-11.8) Prothrombin Time INR 1.03 (0.9-1.15) Activated Partial Thromboplast Time 35.9 SEC (24.5-34.5) H LFT Test 10/26/24 13:50 Alanine Aminotransferase (ALT) 10 U/L (7-40) Alkaline Phosphatase 64 U/L (46-116) Aspartate Amino Transferase (AST) 18 U/L (13-40) Total Bilirubin 0.8 mg/dL (0.2-1.0) Urinalysis Test 10/26/24 13:28 10/26/24 17:06 Urine Color Light-yellow (Yellow) Urine Clarity Clear (Clear) Urine pH 5.0 (5.0-9.0) Urine Specific [place] 1.010 (1.001-1.035) Urine Protein Negative (Negative) Urine Ketones Negative (Negative) Urine Blood Negative /uL (Negative) Urine Nitrite Negative (Negative) Urine Bilirubin Negative (Negative) Urine Urobilinogen Normal mg/dL (Negative) Urine Leukocyte Esterase Negative /uL (Negative) Urine RBC <1 /hpf (0 - 3) Urine Microscopic WBC 1 /HPF (0-3) Urine Squamous Epithelial Cells Few /hpf (<5) Urine Bacteria None seen /hpf (None Seen) Urine Glucose Normal mg/dL (Normal) Urine Creatinine 45.62 mg/dL (30.0-125.0) Urine Sodium 77 mmol/L (40-220) Labs and/or images reviewed: Labs reviewed by me Assessment/Plan Assessment/Plan Hematuria rule out urinary tract infection Lung mass Plan Chest shows lung mass Check CT chest with IV contrast to assess for lung mass Radiology consult for lung biopsy Check UA for hematuria Renal ultrasound to assess for renal abnormalities Check urine sodium, urine creatinine IV fluids for hydration We will follow renal function Resume home meds Waiting for manager wind to see the patient Plan discussed with: Patient Date of Service: Oct 27, 2024 Billing Provider: ANN CHINO MD Common Visit Codes: [id number] INP/OBS CARE(HIGH) ANN CHINO MD Oct 27, 2024 12:15
[2024-10-27 12:19] LABS: BUN/Creatinine Ratio 17.7 (10.0-20.0); Blood Urea Nitrogen 22 mg/dL (9-23); Glucose 87 mg/dL (74-106)
[2024-10-27] MEDS: fentaNYL CITRATE 100 MCG/2 ML VL ONE ×2 (12:30→12:32)
[2024-10-27] MEDS: MIDAZOLAM HCL 2MG/2ML 2ml VIAL (1mg/ml) ONE (12:30)
[2024-10-27] MEDS: LIDOCAINE 2%HCL (LOCAL ANESTH.) INJ 10ml MDV ONE (12:34)
[2024-10-27] MEDS: SODIUM CHLORIDE 0.9% 1,000 ML IV SCH (14:17)
--- NOTE | 2024-10-27 14:19 | DVH ---
PROCEDURE: CT-guided biopsy Procedural Personnel Attending physician(s): Karlos Bishop Fellow physician(s): None Resident physician(s): None Advanced practice provider(s): None Procedure Date (/yyyy): 10/27/2024 Pre-procedure diagnosis: Left lung nodule Post-procedure diagnosis: Same Indication: Histopathologic diagnosis Previous biopsy of same target: No Additional clinical history: None Complications: No immediate complications. IMPRESSION: CT-guided biopsy of left lung nodule. Plan: Specimen(s) sent for evaluation. PROCEDURE SUMMARY: - Percutaneous CT-guided coaxial core needle biopsy of - Additional procedure(s): None PROCEDURE DETAILS: Pre-procedure Reference imaging for biopsy target: Chest XR 10/26/24 Consent: Informed consent for the procedure including risks, benefits and alternatives was obtained a nd time-out was performed prior to the procedure. Preparation: The site was prepared and draped using maximal sterile barrier technique including cutan eous antisepsis. Anesthesia/sedation Level of anesthesia/sedation: Moderate sedation (conscious sedation) Anesthesia/sedation administered by: Independent trained observer under attending supervision with co ntinuous monitoring of the patient s level of consciousness and physiologic status Total intra-service sedation time (minutes): 45 Imaging prior to biopsy The patient was positioned supine . Initial imaging was performed. Biopsy target: - Organ or target location: Lung - Laterality: Left - Maximal diameter (cm): 2.8 Other findings: None Biopsy Local anesthesia was administered. Under CT guidance, the biopsy needle was advanced to the target an d biopsy was performed. Coaxial needle: 19 gauge Core needle biopsy device: cashcloud Core needle size: 20 gauge Number of core specimens: 4 Fine needle aspiration device: NA Fine needle size: Not applicable Number of FNA specimens: Not applicable On-site assessment of biopsy adequacy: No Additional sampling recommendations: None Preliminary assessment of sample adequacy: Not applicable Needle removal The biopsy needle was removed and a sterile dressing was applied. Tract embolization: Blood patch Imaging following biopsy Immediate post-biopsy imaging was performed using noncontrast CT . Post-biopsy imaging findings: No pneumothorax Contrast Contrast agent: None Contrast volume (mL): [address] dose length product (mGy-cm ): 1346.46 Not Used Additional Details Additional description of procedure: None Registry event: V /3 /g Device used: None Equipment details: None Unique Device Identifiers: Not available Specimens removed: Biopsy samples as detailed above Estimated blood loss (mL): Less than 10 Standardized report: [email or web address] Attestation Signer name: Karlos Bishop I attest that I was present for the entire procedure . I reviewed the stored images and agree with e report as written.
--- NOTE | 2024-10-27 16:07 | DVH ---
EXAM: XY CHEST PORTABLE TECHNIQUE: Single frontal chest radiograph CLINICAL HISTORY: POST LUNG MASS BIOPSY COMPARISON: XY CHEST PORTABLE on DOS: 10/26/24, XY CHEST PORTABLE on DOS: 05/08/23, XY CHEST XRAY 1 VIE W on DOS: 04/25/23 Findings/Impression: Frontal chest radiograph demonstrates no acute osseous or superficial soft tissue abnormalities. The trachea is midline. The cardiac silhouette and mediastinum are within normal limits. Hyperinflation of the lungs. Redemonstrated left upper lung field pulmonary nodule/ mass with adjacent hazy opacity. May reflect p ostprocedural hemorrhage. Attention on follow-up. No definite pneumothorax, pleural effusions, or consolidations.
[2024-10-28] VITALS (8 sets, daily range): BP systolic 104–125; BP diastolic 53–71; PULSE 45–74; RESP 16–20; TEMP 97.4–98; O2SAT 95–97
[2024-10-28 06:05] LABS: Calcium 8.9 mg/dL (8.7-10.4); Potassium 3.7 mmol/L (3.5-5.1); Sodium 140 mmol/L (136-145)
[2024-10-28 06:06] LABS: Anion Gap 5 (5-15); Carbon Dioxide 25 mmol/L (20-31)
[2024-10-28 06:11] LABS: Blood Urea Nitrogen 19 mg/dL (9-23); Glucose 81 mg/dL (74-106)
[2024-10-28 06:15] LABS: Chloride 110 mmol/L (98-107)
[2024-10-28] MEDS: HYDROcodone-ACET 10/325MG TAB PO PRN (08:24)
--- NOTE | 2024-10-28 12:46 | DVHPN2 ---
Subjective The patient is seen and examined at bedside. Very tired. Reviewed: Care Plan, H&P, Labs, Medications, Previous Orders, Radiology Changes from previous H/P or p: No Changes Objective Vitals Vital Signs Date Time Temp Pulse Resp B/P (MAP) Pulse Ox O2 Delivery O2 Flow Rate FiO2 10/28/24 09:00 97.6 58 18 125/71 (89) 95 97.6 10/27/24 20:00 Room Air* 0 21 Intake/Output Intake and Output 10/28/24 07:00 Intake Total 650 ml Output Total 450 ml Balance 200 ml Intake Oral 600 ml IV Total 50 ml Output Urine Total 450 ml # Voids 1 General Appearance: Alert, Cooperative, No acute distress HEENT: Atraumatic, PERRLA, EOMI, Mucous membr. moist/pink Neck: Supple Lungs: Clear to auscultation, Normal air movement Cardiovascular: Regular rate, Normal S1, Normal S2 Abdomen: Normal bowel sounds, Soft, No tenderness Neuro: Cranial nerves 3-12 NL Psych/Mental Status: Mental status NL Medications Current Medications Medications Dose Ordered Sig/Dom Route Start Time Stop Time Status Last Admin Dose Admin Sodium Chloride 10 ml Q8HR IV 10/26/24 22:00 10/28/24 06:02 10 ML Docusate Sodium 100 mg BIDPRN PRN PO 10/26/24 17:15 Acetaminophen 650 mg Q6HP PRN PO 10/26/24 17:15 Hydromorphone HCl 0.5 mg Q4HP PRN IV 10/26/24 17:15 Ondansetron HCl 4 mg Q4HP PRN IV 10/26/24 17:15 Ceftriaxone Sodium 50 ml @ 100 mls/hr DAILY IV 10/27/24 10:00 10/28/24 08:23 100 MLS/HR Baclofen 5 mg BID PO 10/26/24 22:00 10/28/24 08:24 5 MG Gabapentin 300 mg DAILY PO 10/27/24 10:00 10/28/24 08:23 300 MG Nicotine 1 patch DAILY TD 10/27/24 10:00 10/28/24 08:26 1 PATCH Cyanocobalamin 1,000 mcg DAILY PO 10/27/24 10:00 10/28/24 08:25 1,000 MCG Patient Own Medication 150 mg BID PO 10/26/24 22:00 Atorvastatin Calcium 10 mg HS PO 10/26/24 22:00 10/27/24 21:35 10 MG Sodium Chloride 1,000 ml @ 60 mls/hr [id number] IV 10/27/24 11:45 10/28/24 04:25 60 MLS/HR Acetaminophen/ Hydrocodone Bitart 1 tab Q4HP PRN PO 10/28/24 07:15 10/28/24 08:24 1 TAB Laboratory Results Laboratory Tests 10/26/24 13:50 10/28/24 05:07 Chemistry Test 10/28/24 05:07 Calcium Level 8.9 mg/dL (8.7-10.4) Urinalysis Test 10/26/24 13:28 10/26/24 17:06 Urine Color Light-yellow (Yellow) Urine Clarity Clear (Clear) Urine pH 5.0 (5.0-9.0) Urine Specific [place] 1.010 (1.001-1.035) Urine Protein Negative (Negative) Urine Ketones Negative (Negative) Urine Blood Negative /uL (Negative) Urine Nitrite Negative (Negative) Urine Bilirubin Negative (Negative) Urine Urobilinogen Normal mg/dL (Negative) Urine Leukocyte Esterase Negative /uL (Negative) Urine RBC <1 /hpf (0 - 3) Urine Microscopic WBC 1 /HPF (0-3) Urine Squamous Epithelial Cells Few /hpf (<5) Urine Bacteria None seen /hpf (None Seen) Urine Glucose Normal mg/dL (Normal) Urine Creatinine 45.62 mg/dL (30.0-125.0) Urine Sodium 77 mmol/L (40-220) Microbiology Microbiology Date/Time Source Procedure Growth Status 10/26/24 17:06 Voided Urine Urine Culture - Preliminary Resulted Labs and/or images reviewed: Labs reviewed by me Assessment/Plan Assessment/Plan Hematuria rule out urinary tract infection Lung mass Plan Chest shows lung mass Check CT chest with IV contrast to assess for lung mass Radiology consult for lung biopsy Check UA for hematuria Renal ultrasound to assess for renal abnormalities Check urine sodium, urine creatinine IV fluids for hydration We will follow renal function Resume home meds Waiting for metallurgical analyst to see the patient Plan discussed with: Patient My Orders Orders - ANN CHINO MD Procedure Category Date Status Time Regular Diet DIET 10/27/24 Transmitted Dinner Date of Service: Oct 28, 2024 Billing Provider: ANN CHINO MD Common Visit Codes: [id number] INP/OBS CARE(HIGH) ANN CHINO MD Oct 28, 2024 12:46
[2024-10-29] VITALS (8 sets, daily range): BP systolic 110–139; BP diastolic 50–63; PULSE 40–55; RESP 15–17; TEMP 97.6–97.9; O2SAT 94–98
[2024-10-29] MEDS: guaiFENesin-DM 100/10mg/5ml SYR PO PRN (16:20)
--- NOTE | 2024-10-29 22:18 | DVHPN2 ---
Subjective The patient is seen and examined at bedside. Very tired. Reviewed: Care Plan, H&P, Labs, Medications, Previous Orders, Radiology Changes from previous H/P or p: No Changes Objective Vitals Vital Signs Date Time Temp Pulse Resp B/P (MAP) Pulse Ox O2 Delivery O2 Flow Rate FiO2 10/29/24 17:00 97.6 40 16 122/54 (76) 98 97.6 10/29/24 08:15 Room Air* 0 21 Intake/Output Intake and Output 10/29/24 07:00 Intake Total 2850 ml Output Total 1650 ml Balance 1200 ml Intake Oral 2340 ml IV Total 510 ml Output Urine Total 1650 ml General Appearance: Alert, Cooperative, No acute distress HEENT: Atraumatic, PERRLA, EOMI, Mucous membr. moist/pink Neck: Supple Lungs: Clear to auscultation, Normal air movement Cardiovascular: Regular rate, Normal S1, Normal S2 Abdomen: Normal bowel sounds, Soft, No tenderness Neuro: Cranial nerves 3-12 NL Psych/Mental Status: Mental status NL Medications Current Medications Medications Dose Ordered Sig/Dom Route Start Time Stop Time Status Last Admin Dose Admin Sodium Chloride 10 ml Q8HR IV 10/26/24 22:00 10/29/24 21:58 10 ML Docusate Sodium 100 mg BIDPRN PRN PO 10/26/24 17:15 Acetaminophen 650 mg Q6HP PRN PO 10/26/24 17:15 Hydromorphone HCl 0.5 mg Q4HP PRN IV 10/26/24 17:15 Ondansetron HCl 4 mg Q4HP PRN IV 10/26/24 17:15 Ceftriaxone Sodium 50 ml @ 100 mls/hr DAILY IV 10/27/24 10:00 10/29/24 08:02 100 MLS/HR Baclofen 5 mg BID PO 10/26/24 22:00 10/29/24 21:59 5 MG Gabapentin 300 mg DAILY PO 10/27/24 10:00 10/29/24 07:57 300 MG Nicotine 1 patch DAILY TD 10/27/24 10:00 10/29/24 08:02 1 PATCH Cyanocobalamin 1,000 mcg DAILY PO 10/27/24 10:00 10/29/24 07:56 1,000 MCG Patient Own Medication 150 mg BID PO 10/26/24 22:00 Atorvastatin Calcium 10 mg HS PO 10/26/24 22:00 10/29/24 22:00 10 MG Sodium Chloride 1,000 ml @ 60 mls/hr [id number] IV 10/27/24 11:45 10/29/24 04:08 60 MLS/HR Acetaminophen/ Hydrocodone Bitart 1 tab Q4HP PRN PO 10/28/24 07:15 10/29/24 18:04 1 TAB Guaifenesin/ Dextromethorphan 10 ml Q6HPRN PRN PO 10/29/24 14:30 10/29/24 16:20 10 ML Laboratory Results Laboratory Tests 10/26/24 13:50 10/28/24 05:07 Urinalysis Test 10/26/24 13:28 10/26/24 17:06 Urine Color Light-yellow (Yellow) Urine Clarity Clear (Clear) Urine pH 5.0 (5.0-9.0) Urine Specific [place] 1.010 (1.001-1.035) Urine Protein Negative (Negative) Urine Ketones Negative (Negative) Urine Blood Negative /uL (Negative) Urine Nitrite Negative (Negative) Urine Bilirubin Negative (Negative) Urine Urobilinogen Normal mg/dL (Negative) Urine Leukocyte Esterase Negative /uL (Negative) Urine RBC <1 /hpf (0 - 3) Urine Microscopic WBC 1 /HPF (0-3) Urine Squamous Epithelial Cells Few /hpf (<5) Urine Bacteria None seen /hpf (None Seen) Urine Glucose Normal mg/dL (Normal) Urine Creatinine 45.62 mg/dL (30.0-125.0) Urine Sodium 77 mmol/L (40-220) Microbiology Microbiology Date/Time Source Procedure Growth Status 10/26/24 17:06 Voided Urine Urine Culture - Final Complete Assessment/Plan Assessment/Plan Hematuria rule out urinary tract infection Lung mass Plan Chest shows lung mass Check CT chest with IV contrast to assess for lung mass Radiology consult for lung biopsy Check UA for hematuria Renal ultrasound to assess for renal abnormalities Check urine sodium, urine creatinine IV fluids for hydration We will follow renal function Resume home meds Waiting for controller repairer and tester to see the patient Plan discussed with: Patient My Orders Orders - ANN CHINO MD Procedure Category Date Status Time Guaifenesin-Dextromet PHA 10/29/24 In Process Liquid (Robitussin 14:30 Date of Service: Oct 29, 2024 Billing Provider: ANN CHINO MD Common Visit Codes: [id number] INP/OBS CARE(HIGH) ANN CHINO MD Oct 29, 2024 22:18
[2024-10-30] VITALS (8 sets, daily range): BP systolic 120–141; BP diastolic 52–68; PULSE 40–56; RESP 16–18; TEMP 97.4–98.3; O2SAT 96–97
--- NOTE | 2024-10-30 11:31 | DVHPN2 ---
Subjective The patient is seen and examined at bedside. Very tired. Reviewed: Care Plan, H&P, Labs, Medications, Previous Orders, Radiology Changes from previous H/P or p: No Changes Objective Vitals Vital Signs Date Time Temp Pulse Resp B/P (MAP) Pulse Ox O2 Delivery O2 Flow Rate FiO2 10/30/24 09:00 97.4 54 17 131/68 (89) 96 97.4 10/30/24 08:00 Room Air* 0 21 Intake/Output Intake and Output 10/30/24 07:00 Intake Total 2450 ml Output Total 775 ml Balance 1675 ml Intake Oral 1680 ml IV Total 770 ml Output Urine Total 775 ml # Voids 1 General Appearance: Alert, Cooperative, No acute distress HEENT: Atraumatic, PERRLA, EOMI, Mucous membr. moist/pink Neck: Supple Lungs: Clear to auscultation, Normal air movement Cardiovascular: Regular rate, Normal S1, Normal S2 Abdomen: Normal bowel sounds, Soft, No tenderness Neuro: Cranial nerves 3-12 NL Psych/Mental Status: Mental status NL Medications Current Medications Medications Dose Ordered Sig/Dom Route Start Time Stop Time Status Last Admin Dose Admin Sodium Chloride 10 ml Q8HR IV 10/26/24 22:00 10/30/24 05:40 10 ML Docusate Sodium 100 mg BIDPRN PRN PO 10/26/24 17:15 Acetaminophen 650 mg Q6HP PRN PO 10/26/24 17:15 Hydromorphone HCl 0.5 mg Q4HP PRN IV 10/26/24 17:15 Ondansetron HCl 4 mg Q4HP PRN IV 10/26/24 17:15 Ceftriaxone Sodium 50 ml @ 100 mls/hr DAILY IV 10/27/24 10:00 10/30/24 09:34 100 MLS/HR Baclofen 5 mg BID PO 10/26/24 22:00 10/30/24 09:49 5 MG Gabapentin 300 mg DAILY PO 10/27/24 10:00 10/30/24 09:27 300 MG Nicotine 1 patch DAILY TD 10/27/24 10:00 10/30/24 09:26 1 PATCH Cyanocobalamin 1,000 mcg DAILY PO 10/27/24 10:00 10/30/24 09:26 1,000 MCG Patient Own Medication 150 mg BID PO 10/26/24 22:00 Atorvastatin Calcium 10 mg HS PO 10/26/24 22:00 10/29/24 22:00 10 MG Sodium Chloride 1,000 ml @ 60 mls/hr [id number] IV 10/27/24 11:45 10/29/24 23:00 60 MLS/HR Acetaminophen/ Hydrocodone Bitart 1 tab Q4HP PRN PO 10/28/24 07:15 10/30/24 09:26 1 TAB Guaifenesin/ Dextromethorphan 10 ml Q6HPRN PRN PO 10/29/24 14:30 10/29/24 16:20 10 ML Laboratory Results Laboratory Tests 10/26/24 13:50 10/28/24 05:07 Urinalysis Test 10/26/24 13:28 10/26/24 17:06 Urine Color Light-yellow (Yellow) Urine Clarity Clear (Clear) Urine pH 5.0 (5.0-9.0) Urine Specific [place] 1.010 (1.001-1.035) Urine Protein Negative (Negative) Urine Ketones Negative (Negative) Urine Blood Negative /uL (Negative) Urine Nitrite Negative (Negative) Urine Bilirubin Negative (Negative) Urine Urobilinogen Normal mg/dL (Negative) Urine Leukocyte Esterase Negative /uL (Negative) Urine RBC <1 /hpf (0 - 3) Urine Microscopic WBC 1 /HPF (0-3) Urine Squamous Epithelial Cells Few /hpf (<5) Urine Bacteria None seen /hpf (None Seen) Urine Glucose Normal mg/dL (Normal) Urine Creatinine 45.62 mg/dL (30.0-125.0) Urine Sodium 77 mmol/L (40-220) Microbiology Microbiology Date/Time Source Procedure Growth Status 10/26/24 17:06 Voided Urine Urine Culture - Final Complete Labs and/or images reviewed: Labs reviewed by me Assessment/Plan Assessment/Plan Hematuria rule out urinary tract infection Lung mass Plan Chest shows lung mass , waiting for pathology Check CT chest with IV contrast to assess for lung mass Radiology consult for lung biopsy Check UA for hematuria Renal ultrasound to assess for renal abnormalities Check urine sodium, urine creatinine IV fluids for hydration We will follow renal function Resume home meds Waiting for supervisor rubber covering to see the patient Plan discussed with: Patient My Orders Orders - ANN CHINO MD Procedure Category Date Status Time Guaifenesin-Dextromet PHA 10/29/24 In Process Liquid (Robitussin 14:30 Date of Service: Oct 30, 2024 Billing Provider: ANN CHINO MD Common Visit Codes: [id number] INP/OBS CARE(HIGH) ANN CHINO MD Oct 30, 2024 11:31
--- NOTE | 2024-10-30 11:34 | DVHPN2 ---
Subjective The patient is seen and examined at bedside. Very tired. Reviewed: Care Plan, H&P, Labs, Medications, Previous Orders, Radiology Objective Vitals Vital Signs Date Time Temp Pulse Resp B/P (MAP) Pulse Ox O2 Delivery O2 Flow Rate FiO2 10/30/24 09:00 97.4 54 17 131/68 (89) 96 97.4 10/30/24 08:00 Room Air* 0 21 Intake/Output Intake and Output 10/30/24 07:00 Intake Total 2450 ml Output Total 775 ml Balance 1675 ml Intake Oral 1680 ml IV Total 770 ml Output Urine Total 775 ml # Voids 1 General Appearance: Alert, Cooperative, No acute distress HEENT: Atraumatic, PERRLA, EOMI, Mucous membr. moist/pink Neck: Supple Lungs: Clear to auscultation, Normal air movement Cardiovascular: Regular rate, Normal S1, Normal S2 Abdomen: Normal bowel sounds, Soft, No tenderness Neuro: Cranial nerves 3-12 NL Psych/Mental Status: Mental status NL Medications Current Medications Medications Dose Ordered Sig/Dom Route Start Time Stop Time Status Last Admin Dose Admin Sodium Chloride 10 ml Q8HR IV 10/26/24 22:00 10/30/24 05:40 10 ML Docusate Sodium 100 mg BIDPRN PRN PO 10/26/24 17:15 Acetaminophen 650 mg Q6HP PRN PO 10/26/24 17:15 Hydromorphone HCl 0.5 mg Q4HP PRN IV 10/26/24 17:15 Ondansetron HCl 4 mg Q4HP PRN IV 10/26/24 17:15 Ceftriaxone Sodium 50 ml @ 100 mls/hr DAILY IV 10/27/24 10:00 10/30/24 09:34 100 MLS/HR Baclofen 5 mg BID PO 10/26/24 22:00 10/30/24 09:49 5 MG Gabapentin 300 mg DAILY PO 10/27/24 10:00 10/30/24 09:27 300 MG Nicotine 1 patch DAILY TD 10/27/24 10:00 10/30/24 09:26 1 PATCH Cyanocobalamin 1,000 mcg DAILY PO 10/27/24 10:00 10/30/24 09:26 1,000 MCG Patient Own Medication 150 mg BID PO 10/26/24 22:00 Atorvastatin Calcium 10 mg HS PO 10/26/24 22:00 10/29/24 22:00 10 MG Sodium Chloride 1,000 ml @ 60 mls/hr [id number] IV 10/27/24 11:45 10/29/24 23:00 60 MLS/HR Acetaminophen/ Hydrocodone Bitart 1 tab Q4HP PRN PO 10/28/24 07:15 10/30/24 09:26 1 TAB Guaifenesin/ Dextromethorphan 10 ml Q6HPRN PRN PO 10/29/24 14:30 10/29/24 16:20 10 ML Laboratory Results Laboratory Tests 10/26/24 13:50 10/28/24 05:07 Urinalysis Test 10/26/24 13:28 10/26/24 17:06 Urine Color Light-yellow (Yellow) Urine Clarity Clear (Clear) Urine pH 5.0 (5.0-9.0) Urine Specific [place] 1.010 (1.001-1.035) Urine Protein Negative (Negative) Urine Ketones Negative (Negative) Urine Blood Negative /uL (Negative) Urine Nitrite Negative (Negative) Urine Bilirubin Negative (Negative) Urine Urobilinogen Normal mg/dL (Negative) Urine Leukocyte Esterase Negative /uL (Negative) Urine RBC <1 /hpf (0 - 3) Urine Microscopic WBC 1 /HPF (0-3) Urine Squamous Epithelial Cells Few /hpf (<5) Urine Bacteria None seen /hpf (None Seen) Urine Glucose Normal mg/dL (Normal) Urine Creatinine 45.62 mg/dL (30.0-125.0) Urine Sodium 77 mmol/L (40-220) Microbiology Microbiology Date/Time Source Procedure Growth Status 10/26/24 17:06 Voided Urine Urine Culture - Final Complete Assessment/Plan Assessment/Plan Hematuria rule out urinary tract infection Lung mass Plan Chest shows lung mass Check CT chest with IV contrast to assess for lung mass Radiology consult for lung biopsy Check UA for hematuria Renal ultrasound to assess for renal abnormalities Check urine sodium, urine creatinine IV fluids for hydration We will follow renal function Resume home meds Waiting for radio repairer to see the patient My Orders Orders - ANN CHINO MD Procedure Category Date Status Time Guaifenesin-Dextromet PHA 10/29/24 In Process Liquid (Robitussin 14:30 ANN CHINO MD Oct 30, 2024 11:34
[2024-10-31] VITALS (8 sets, daily range): BP systolic 103–135; BP diastolic 48–84; PULSE 50–67; RESP 18; TEMP 97.7–98.1; O2SAT 95–98
[2024-10-31] MEDS: ACETAMINOPHEN 325 MG TAB PO PRN (12:05)
--- NOTE | 2024-10-31 22:45 | DVHPN2 ---
Subjective The patient is seen and examined at bedside. Very tired. Reviewed: Care Plan, H&P, Labs, Medications, Previous Orders, Radiology Changes from previous H/P or p: No Changes Objective Vitals Vital Signs Date Time Temp Pulse Resp B/P (MAP) Pulse Ox O2 Delivery O2 Flow Rate FiO2 10/31/24 20:50 98.1 55 18 126/60 (82) 97 98.1 10/31/24 08:00 Room Air* 0 21 Intake/Output Intake and Output 10/31/24 07:00 Intake Total 1700 ml Output Total 1600 ml Balance 100 ml Intake Oral 1050 ml IV Total 650 ml Output Urine Total 1600 ml General Appearance: Alert, Cooperative, No acute distress HEENT: Atraumatic, PERRLA, EOMI, Mucous membr. moist/pink Neck: Supple Lungs: Clear to auscultation, Normal air movement Cardiovascular: Regular rate, Normal S1, Normal S2 Abdomen: Normal bowel sounds, Soft, No tenderness Neuro: Cranial nerves 3-12 NL Psych/Mental Status: Mental status NL Medications Current Medications Medications Dose Ordered Sig/Dom Route Start Time Stop Time Status Last Admin Dose Admin Sodium Chloride 10 ml Q8HR IV 10/26/24 22:00 10/31/24 14:45 10 ML Docusate Sodium 100 mg BIDPRN PRN PO 10/26/24 17:15 Acetaminophen 650 mg Q6HP PRN PO 10/26/24 17:15 10/31/24 12:05 650 MG Hydromorphone HCl 0.5 mg Q4HP PRN IV 10/26/24 17:15 Ondansetron HCl 4 mg Q4HP PRN IV 10/26/24 17:15 Ceftriaxone Sodium 50 ml @ 100 mls/hr DAILY IV 10/27/24 10:00 10/31/24 09:56 100 MLS/HR Baclofen 5 mg BID PO 10/26/24 22:00 10/31/24 21:28 5 MG Gabapentin 300 mg DAILY PO 10/27/24 10:00 10/31/24 09:56 300 MG Nicotine 1 patch DAILY TD 10/27/24 10:00 10/31/24 09:56 1 PATCH Cyanocobalamin 1,000 mcg DAILY PO 10/27/24 10:00 10/31/24 09:56 1,000 MCG Patient Own Medication 150 mg BID PO 10/26/24 22:00 Atorvastatin Calcium 10 mg HS PO 10/26/24 22:00 10/31/24 21:29 10 MG Sodium Chloride 1,000 ml @ 60 mls/hr [id number] IV 10/27/24 11:45 10/29/24 23:00 60 MLS/HR Acetaminophen/ Hydrocodone Bitart 1 tab Q4HP PRN PO 10/28/24 07:15 10/31/24 14:45 1 TAB Guaifenesin/ Dextromethorphan 10 ml Q6HPRN PRN PO 10/29/24 14:30 10/29/24 16:20 10 ML Laboratory Results Laboratory Tests 10/26/24 13:50 10/28/24 05:07 Urinalysis Test 10/26/24 13:28 10/26/24 17:06 Urine Color Light-yellow (Yellow) Urine Clarity Clear (Clear) Urine pH 5.0 (5.0-9.0) Urine Specific [place] 1.010 (1.001-1.035) Urine Protein Negative (Negative) Urine Ketones Negative (Negative) Urine Blood Negative /uL (Negative) Urine Nitrite Negative (Negative) Urine Bilirubin Negative (Negative) Urine Urobilinogen Normal mg/dL (Negative) Urine Leukocyte Esterase Negative /uL (Negative) Urine RBC <1 /hpf (0 - 3) Urine Microscopic WBC 1 /HPF (0-3) Urine Squamous Epithelial Cells Few /hpf (<5) Urine Bacteria None seen /hpf (None Seen) Urine Glucose Normal mg/dL (Normal) Urine Creatinine 45.62 mg/dL (30.0-125.0) Urine Sodium 77 mmol/L (40-220) Microbiology Microbiology Date/Time Source Procedure Growth Status 10/26/24 17:06 Voided Urine Urine Culture - Final Complete Labs and/or images reviewed: Labs reviewed by me Assessment/Plan Assessment/Plan Hematuria rule out urinary tract infection Lung mass Plan Chest shows lung mass waiting for biopsy result Check CT chest with IV contrast to assess for lung mass Radiology consult for lung biopsy Check UA for hematuria Renal ultrasound to assess for renal abnormalities Check urine sodium, urine creatinine IV fluids for hydration We will follow renal function Resume home meds Waiting for woodwind reeds cutter to see the patient Plan discussed with: Patient Date of Service: Oct 31, 2024 Billing Provider: ANN CHINO MD Common Visit Codes: [id number] INP/OBS CARE(HIGH) ANN CHINO MD Oct 31, 2024 22:45
[2024-11-01 05:00] VITALS: BP 129/51; PULSE 55; RESP 18; TEMP 98.2; O2SAT 96
[2024-11-01 08:00] VITALS: PULSE 67; RESP 18; O2SAT 96
--- NOTE | 2024-11-01 11:59 | DVHPN2 ---
Subjective The patient is seen and examined at bedside.Walking about the room. Reviewed: Care Plan, H&P, Labs, Medications, Previous Orders, Radiology Changes from previous H/P or p: No Changes Objective Vitals Vital Signs Date Time Temp Pulse Resp B/P (MAP) Pulse Ox O2 Delivery O2 Flow Rate FiO2 11/01/24 08:00 67 18 96 Room Air* 0 21 11/01/24 05:00 98.2 129/51 (77) 98.2 Intake/Output Intake and Output 11/01/24 07:00 Intake Total 2090 ml Output Total 425 ml Balance 1665 ml Intake Oral 1440 ml IV Total 650 ml Output Urine Total 425 ml # Voids 3 General Appearance: Alert, Cooperative, No acute distress HEENT: Atraumatic, PERRLA, EOMI, Mucous membr. moist/pink Neck: Supple Lungs: Clear to auscultation, Normal air movement Cardiovascular: Regular rate, Normal S1, Normal S2 Abdomen: Normal bowel sounds, Soft, No tenderness Neuro: Cranial nerves 3-12 NL Psych/Mental Status: Mental status NL Medications Current Medications Medications Dose Ordered Sig/Dom Route Start Time Stop Time Status Last Admin Dose Admin Sodium Chloride 10 ml Q8HR IV 10/26/24 22:00 11/01/24 05:09 10 ML Docusate Sodium 100 mg BIDPRN PRN PO 10/26/24 17:15 Acetaminophen 650 mg Q6HP PRN PO 10/26/24 17:15 10/31/24 12:05 650 MG Hydromorphone HCl 0.5 mg Q4HP PRN IV 10/26/24 17:15 Ondansetron HCl 4 mg Q4HP PRN IV 10/26/24 17:15 Ceftriaxone Sodium 50 ml @ 100 mls/hr DAILY IV 10/27/24 10:00 11/01/24 10:24 100 MLS/HR Baclofen 5 mg BID PO 10/26/24 22:00 11/01/24 10:24 5 MG Gabapentin 300 mg DAILY PO 10/27/24 10:00 11/01/24 10:24 300 MG Nicotine 1 patch DAILY TD 10/27/24 10:00 11/01/24 10:26 1 PATCH Cyanocobalamin 1,000 mcg DAILY PO 10/27/24 10:00 11/01/24 10:24 1,000 MCG Patient Own Medication 150 mg BID PO 10/26/24 22:00 Atorvastatin Calcium 10 mg HS PO 10/26/24 22:00 10/31/24 21:29 10 MG Sodium Chloride 1,000 ml @ 60 mls/hr [id number] IV 10/27/24 11:45 11/01/24 05:33 60 MLS/HR Acetaminophen/ Hydrocodone Bitart 1 tab Q4HP PRN PO 10/28/24 07:15 11/01/24 08:08 1 TAB Guaifenesin/ Dextromethorphan 10 ml Q6HPRN PRN PO 10/29/24 14:30 10/29/24 16:20 10 ML Laboratory Results Laboratory Tests 10/26/24 13:50 10/28/24 05:07 Urinalysis Test 10/26/24 13:28 10/26/24 17:06 Urine Color Light-yellow (Yellow) Urine Clarity Clear (Clear) Urine pH 5.0 (5.0-9.0) Urine Specific [place] 1.010 (1.001-1.035) Urine Protein Negative (Negative) Urine Ketones Negative (Negative) Urine Blood Negative /uL (Negative) Urine Nitrite Negative (Negative) Urine Bilirubin Negative (Negative) Urine Urobilinogen Normal mg/dL (Negative) Urine Leukocyte Esterase Negative /uL (Negative) Urine RBC <1 /hpf (0 - 3) Urine Microscopic WBC 1 /HPF (0-3) Urine Squamous Epithelial Cells Few /hpf (<5) Urine Bacteria None seen /hpf (None Seen) Urine Glucose Normal mg/dL (Normal) Urine Creatinine 45.62 mg/dL (30.0-125.0) Urine Sodium 77 mmol/L (40-220) Microbiology Microbiology Date/Time Source Procedure Growth Status 10/26/24 17:06 Voided Urine Urine Culture - Final Complete Labs and/or images reviewed: Labs reviewed by me Assessment/Plan Assessment/Plan Hematuria rule out urinary tract infection Lung mass Plan Chest shows lung mass Check CT chest with IV contrast to assess for lung mass Radiology consult for lung biopsy Biopsy preliminary showed lung cancer ( pathologist, Dr. Booth) Called and discussed with daughter, Shannon, we will consulted oncologist Check UA for hematuria Renal ultrasound to assess for renal abnormalities Check urine sodium, urine creatinine IV fluids for hydration We will follow renal function Resume home meds The patient had some heart palpitation today we will consulted vice president of recruiting This medical document was created using an electronic medical record system with [employer] direct computerized dictation system. Although this document has been carefully reviewed, there may still be some phonetic and typographical errors. These areas are purely typographical due to imperfections of the software programs, and do not reflect any compromise in the patient's medical care. Plan discussed with: Patient Date of Service: Nov 01, 2024 Billing Provider: ANN CHINO MD Common Visit Codes: [id number] INP/OBS CARE(HIGH) ANN CHINO MD Nov 01, 2024 11:59
[2024-11-01 13:30] VITALS: BP 138/67; PULSE 50; RESP 18; TEMP 98.4; O2SAT 97
[2024-11-01 20:00] VITALS: PULSE 72; RESP 18; O2SAT 98
[2024-11-01 21:00] VITALS: BP 128/73; PULSE 74; RESP 18; TEMP 98.4; O2SAT 94
[2024-11-02] VITALS (7 sets, daily range): BP systolic 103–135; BP diastolic 49–59; PULSE 41–85; RESP 16–18; TEMP 97.7–98.1; O2SAT 94–100
--- NOTE | 2024-11-02 12:09 | DVHPN2 ---
Subjective The patient is seen and examined at bedside , no complaint today.. Reviewed: Care Plan, H&P, Labs, Medications, Previous Orders, Radiology Changes from previous H/P or p: No Changes Objective Vitals Vital Signs Date Time Temp Pulse Resp B/P (MAP) Pulse Ox O2 Delivery O2 Flow Rate FiO2 11/02/24 08:50 97.7 61 18 135/59 (84) 95 97.7 11/01/24 20:00 Nasal Cannula* 2 28 Intake/Output Intake and Output 11/02/24 07:00 Intake Total 1230 ml Output Total 700 ml Balance 530 ml Intake Oral 1000 ml IV Total 230 ml Output Urine Total 700 ml # Voids 5 General Appearance: Alert, Cooperative, No acute distress HEENT: Atraumatic, PERRLA, EOMI, Mucous membr. moist/pink Neck: Supple Lungs: Clear to auscultation, Normal air movement Cardiovascular: Regular rate, Normal S1, Normal S2 Abdomen: Normal bowel sounds, Soft, No tenderness Neuro: Cranial nerves 3-12 NL Psych/Mental Status: Mental status NL Medications Current Medications Medications Dose Ordered Sig/Dom Route Start Time Stop Time Status Last Admin Dose Admin Sodium Chloride 10 ml Q8HR IV 10/26/24 22:00 11/02/24 06:20 10 ML Docusate Sodium 100 mg BIDPRN PRN PO 10/26/24 17:15 Acetaminophen 650 mg Q6HP PRN PO 10/26/24 17:15 10/31/24 12:05 650 MG Hydromorphone HCl 0.5 mg Q4HP PRN IV 10/26/24 17:15 Ondansetron HCl 4 mg Q4HP PRN IV 10/26/24 17:15 Ceftriaxone Sodium 50 ml @ 100 mls/hr DAILY IV 10/27/24 10:00 11/02/24 10:13 100 MLS/HR Baclofen 5 mg BID PO 10/26/24 22:00 11/02/24 10:12 5 MG Gabapentin 300 mg DAILY PO 10/27/24 10:00 11/02/24 10:12 300 MG Nicotine 1 patch DAILY TD 10/27/24 10:00 11/02/24 10:18 1 PATCH Cyanocobalamin 1,000 mcg DAILY PO 10/27/24 10:00 11/02/24 10:12 1,000 MCG Patient Own Medication 150 mg BID PO 10/26/24 22:00 Atorvastatin Calcium 10 mg HS PO 10/26/24 22:00 11/01/24 22:07 10 MG Sodium Chloride 1,000 ml @ 60 mls/hr [id number] IV 10/27/24 11:45 11/01/24 19:04 60 MLS/HR Acetaminophen/ Hydrocodone Bitart 1 tab Q4HP PRN PO 10/28/24 07:15 11/01/24 08:08 1 TAB Guaifenesin/ Dextromethorphan 10 ml Q6HPRN PRN PO 10/29/24 14:30 10/29/24 16:20 10 ML Laboratory Results Laboratory Tests 10/26/24 13:50 10/28/24 05:07 Urinalysis Test 10/26/24 13:28 10/26/24 17:06 Urine Color Light-yellow (Yellow) Urine Clarity Clear (Clear) Urine pH 5.0 (5.0-9.0) Urine Specific [place] 1.010 (1.001-1.035) Urine Protein Negative (Negative) Urine Ketones Negative (Negative) Urine Blood Negative /uL (Negative) Urine Nitrite Negative (Negative) Urine Bilirubin Negative (Negative) Urine Urobilinogen Normal mg/dL (Negative) Urine Leukocyte Esterase Negative /uL (Negative) Urine RBC <1 /hpf (0 - 3) Urine Microscopic WBC 1 /HPF (0-3) Urine Squamous Epithelial Cells Few /hpf (<5) Urine Bacteria None seen /hpf (None Seen) Urine Glucose Normal mg/dL (Normal) Urine Creatinine 45.62 mg/dL (30.0-125.0) Urine Sodium 77 mmol/L (40-220) Microbiology Microbiology Date/Time Source Procedure Growth Status 10/26/24 17:06 Voided Urine Urine Culture - Final Complete Labs and/or images reviewed: Labs reviewed by me Assessment/Plan Assessment/Plan Hematuria rule out urinary tract infection Lung mass Plan Chest shows lung mass Check CT chest with IV contrast to assess for lung mass Radiology consult for lung biopsy Biopsy preliminary showed lung cancer ( pathologist, Dr. 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 Stage of the cancer still pending I called and discussed with oncologist, , she will see the patient as outpatient and arrange follow up as outpatient. Called and discussed with daughter, Shannon Check UA for hematuria Renal ultrasound to assess for renal abnormalities Check urine sodium, urine creatinine IV fluids for hydration We will follow renal function Resume home meds The patient had some heart palpitation and bradycardia today so we will consulted cylinder machine operator pulp drier This medical document was created using an electronic medical record system with [employer] direct computerized dictation system. Although this document has been carefully reviewed, there may still be some phonetic and typographical errors. These areas are purely typographical due to imperfections of the software programs, and do not reflect any compromise in the patient's medical care. Plan discussed with: Patient, Daughter, Other (RN) My Orders Orders - ANN CHINO MD Procedure Category Date Status Time Transfer Orders XFER 11/01/24 Transmitted 13:53 Date of Service: November 02, 2024 Billing Provider: ANN CHINO MD Common Visit Codes: [id number] INP/OBS CARE(HIGH) ANN CHINO MD November 02, 2024 12:09
--- NOTE | 2024-11-02 14:35 | DVHINCON2 ---
Date Seen: November 02, 2024 Referring Physician MD Sandra Reason for Consultation Bradycardia History of Present Illness This is an 84-year-old male patient who presents to the emergency room with chief complaint of hematuria. He is currently being evaluated and seen by Nephrology. Cardiology has been consulted at this time for bradycardia. No twelve lead electrocardiogram was done during admission. A twelve lead el ectrocardiogram was ordered at time of assessment and reveals sinus bradycardia with nonspecific ST segment changes seen in lateral leads. 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 Patient noted to have episodes of sinus bradycardia without any significant pauses or AV blocks. The patient denies any cardiac symptoms. Significant past medical history includes hypertension, dyslipidemia, GERD, t obacco use and dementia. The patient reports he has been told in the past that he has a low heart rate and was evaluated by house coordinator. He states that he no longer follows up with a house coordinator because he was told that he was fine. Past Medical History Past medical history reviewed. No other significant than mentioned above. Past Surgical History Unspecified abdominal surgery Family History: FH: tuberculosis G8 MOTHER, Hypertension G8 MOTHER, , Onset:50's - 60 Family History Family history reviewed. Social History Patient has a 68 pack-year history, smokes one pack per day Denies any illicit drug use Denies any alcohol use Allergies: Coded Allergies: NO KNOWN ALLERGIES (Unverified , 10/28/24) Home Meds Active Scripts Albuterol Sulfate (VENTOLIN MDI) 90 Mcg Ih, 1 PUFF IN Q4HR, #1 INH As needed for cough nasal congestion shortness of breath or wheeze Prov:JULIA GRANADOS Q BROMINATION EQUIPMENT OPERATOR 05/20/23 Azithromycin (Zithromax Z-Pk) 250 Mg Tab, 1 TAB PO DAILY for 5 Days, #6 TAB 2 tablets today then start 1 tablet tomorrow for 5 days Prov:JULIA GRANADOS Q BROMINATION EQUIPMENT OPERATOR 05/20/23 Aspirin (Aspir-81) 81 Mg Tab, 1 TAB PO DAILY, #30 TAB 3 Refills Prov:TAMI LEHMAN RESIDENT 04/27/23 Atorvastatin Calcium (ATORVASTATIN CALCIUM) 40 Mg Tab, 1 TAB PO DAILY, #30 TAB 3 Refills Prov:TAMI LEHMAN RESIDENT 04/27/23 Cyanocobalamin (B12) 1,000 Mcg Cap, 1000 MCG PO DAILY for 30 Days, #30 CAP 2 Refills Prov:TAMI LEHMAN RESIDENT 04/27/23 Spironolactone (Spironolactone) 25 Mg Tab, 1 TAB PO DAILY for 30 Days, #30 TAB 3 Refills Prov:TAMI LEHMAN RESIDENT 04/27/23 Lisinopril (Lisinopril) 5 Mg Tab, 5 MG PO DAILY for 30 Days, #30 TAB 3 Refills Prov:TAMI LEHMAN RESIDENT 04/27/23 Nicotine (Nicoderm 21MG/24HR) 1 Patch Ph, 1 PATCH TOP DAILY, #28 PATCH 1 Refill Prov:TAMI LEHMAN RESIDENT 04/27/23 Reported Medications Simvastatin (Zocor) 20 Mg Tab, 20 MG PO DAILY, #30 MG 0 Refills 12/19/13 Celecoxib (Celebrex) 200 Mg Cap, 200 MG PO BID, CAP 12/19/13 Gabapentin (Neurontin) 300 Mg Cap, 300 MG PO TID, CAP 12/19/13 Baclofen (Baclofen) 10 Mg Tab, 10 MG PO TID, TAB 12/19/13 Hydrocodone-Acetaminophen ([place] 10/325MG) 1 Tab Tb, 1 TAB GT TID 12/19/13 Ranitidine Hcl (EQ RANITIDINE) 150 Mg Tab, 150 MG OR BID, TAB 12/19/13 Home Meds Home medications reviewed. Review of Systems Constitutional: No symptom reported Ears, Nose, & Throat: No symptom reported Eyes: No symptom reported Neurological: No symptoms reported Pulmonary/Respiratory: No symptoms reported Cardiovascular: No symptom reported Gastrointestinal: No symptom reported Genitourinary: Hematuria Musculoskeletal: No symptom reported Skin: No symptom reported Psychiatric: No symptom reported Endocrine: No symptom reported Hematologic/Lymphatic: No symptom reported Vital Signs Vital Signs Date Time Temp Pulse Resp B/P (MAP) Pulse Ox O2 Delivery O2 Flow Rate FiO2 11/02/24 13:08 97.9 85 16 125/49 (74) 97 97.9 11/02/24 08:00 Room Air* 0 21 Physical Exam General Appearance: Cooperative. Thin, frail Pulmonary/Respiratory: Clear, bilateral breaths sounds. Cardiovascular/Chest: Regular rate and rhythm. Peripheral Pulses: 2+ Radial (R). 2+ Radial (L). 2+ Pedal (R). 2+ Pedal (L) Abdominal Exam: Normal bowel sounds. Ankle Exam: Negative ankle edema Lower extremities: Negative lower extremity edema Neuro/Mental Status: A/OX3, forgetful Thoughts/Psych: Normal thought pattern. Appropriate mood and affect. Appearance: No acute distress. Skin Exam: Normal inspection. Normal color. Warm and dry. Labs/Diagnostic Data Labs Test 11/02/24 05:07 10/28/24 05:07 10/27/24 09:13 10/26/24 17:06 Range/Units Sodium Level 140 136-145 mmol/L Potassium Level 3.7 3.5-5.1 mmol/L Chloride Level 110 H 98-107 mmol/L Carbon Dioxide Level 25 20-31 mmol/L Anion Gap 5 5-15 Blood Urea Nitrogen 19 9-23 mg/dL Creatinine 1.19 0.700-1.30 mg/dL Glomerular Filtration Rate Calc 61 >90 mL/min BUN/Creatinine Ratio 16.0 10.0-20.0 Serum Glucose 81 74-106 mg/dL Calcium Level 8.9 8.7-10.4 mg/dL Prothrombin Time 10.9 9.3-11.8 sec Prothrombin Time INR 1.03 0.9-1.15 Activated Partial Thromboplast Time 35.9 H 24.5-34.5 SEC Urine Creatinine 45.62 30.0-125.0 mg/dL Urine Sodium 77 40-220 mmol/L Test 10/26/24 13:50 10/26/24 13:28 Range/Units White Blood Count 6.4 4.4-10.8 10^3/uL Red Blood Count 4.70 4.5-5.90 10^6/uL Hemoglobin 13.2 L 13.5-17.5 g/dL Hematocrit 40.2 L 41.0-53.0 % Mean Corpuscular Volume 85.4 80.0-100.0 fL Mean Corpuscular Hemoglobin 28.1 28.0-32.0 pg Mean Corpuscular Hemoglobin Concent 32.9 32.0-36.0 g/dL Red Cell Distribution Width 13.9 11.8-14.3 % Platelet Count 206 140-450 10^3/uL Mean Platelet Volume 7.8 6.9-10.8 fL Neutrophils (%) (Auto) 63.9 37.0-80.0 % Lymphocytes (%) (Auto) 24.7 10.0-50.0 % Monocytes (%) (Auto) 8.7 0.0-12.0 % Eosinophils (%) (Auto) 1.8 0.0-7.0 % Basophils (%) (Auto) 0.9 0.0-2.0 % Neutrophils # (Auto) 4.1 1.6-8.6 10 ^3/uL Lymphocytes # (Auto) 1.6 0.4-5.4 10 ^3/uL Monocytes # (Auto) 0.6 0-1.3 10 ^3/uL Eosinophils # (Auto) 0.1 0-0.8 10 ^3/uL Basophils # (Auto) 0.1 0-0.2 10 ^3/uL Nucleated Red Blood Cells 0.0 % Lactic Acid Level 1.3 0.4-2.0 mmol/L Total Bilirubin 0.8 0.2-1.0 mg/dL Aspartate Amino Transferase (AST) 18 13-40 U/L Alanine Aminotransferase (ALT) 10 7-40 U/L Alkaline Phosphatase 64 46-116 U/L Troponin I High Sensitivity 14 </=54 ng/L Total Protein 7.6 5.7-8.2 g/dL Albumin 4.6 3.2-4.8 g/dL Urine Color Light-yellow Yellow Urine Clarity Clear Clear Urine pH 5.0 5.0-9.0 Urine Specific [place] 1.010 1.001-1.035 Urine Protein Negative Negative Urine Ketones Negative Negative Urine Blood Negative Negative /uL Urine Nitrite Negative Negative Urine Bilirubin Negative Negative Urine Urobilinogen Normal Negative mg/dL Urine Leukocyte Esterase Negative Negative /uL Urine RBC <1 0 - 3 /hpf Urine Microscopic WBC 1 0-3 /HPF Urine Squamous Epithelial Cells Few <5 /hpf Urine Bacteria None seen None Seen /hpf Urine Glucose Normal Normal mg/dL Microbiology Date/Time Source Procedure Growth Status 10/26/24 17:06 Voided Urine Urine Culture - Final Complete Assessment Sinus bradycardia with PVCs Rule out structural heart disease Hypertension Dyslipidemia Left lung nodule status post biopsy ?Malignancy Hematuria, resolved Acute kidney injury, resolved Tobacco use Dementia Plan/Recommendation We will continue with the following plan/recommendations (Dr. Baez): We will proceed with obtaining a transthoracic echocardiogram to evaluate cardiac function. Patient having episodes of sinus bradycardia with PVCs. Initiate daily magnesium. No significant pauses or atrioventricular blocks noted on monitor. Avoid AV candido blocking agents. The patient denies any cardiac symptoms at time of assessment. Keep patient on telemetry monitoring and notify cardiology team immediately for any ECG changes such as pauses or atrioventricular blocks. Thank you for allowing us to care for this patient. Please call with any questions or concerns. Critical care time spent: 43 minutes This medical document was created using an electronic medical record system with voice recognition software and computerized dictation system. Although this document has been carefully reviewed, there might still be some phonetic and typographical errors. Occasional wrong-word or ``sound-alike substitutions may have occurred due to the inherent limitations of voice recognition software. These areas are purely typographical due to imperfections of the software programs and do not reflect any compromise in the patient's medical care. Please read the chart carefully and recognize, using context, where these substitutions have occurred. Plan discussed with: Patient NYHA Physical activity limitations: NA Date of Service: November 02, 2024 Billing Provider: MAYLIN ORTEGA Cardiology Common Codes: 29171-[id number] INP/OBS CARE (High) Cardiology Consultation Codes: [id number] CONSULT <45MIN MAYLIN ORTEGA November 02, 2024 14:35
[2024-11-02 15:12] LABS: Magnesium 2.1 mg/dL (1.6-2.6)
--- NOTE | 2024-11-02 17:15 | DVHSR ---
APPROVED REPORT EXAM: Two-dimensional and M-mode echocardiogram with Doppler and color Doppler. Blood Pressure: 125/49 mmHg INDICATION Evaluate Cardiac Function RISK FACTORS Height: 5' 10", Weight: 137 DIMENSIONS LVDd4.9 (3.8-5.7cm)LA (2D)3.8 (1.9-4.0cm)Aortic Root3.4 (2.0-3.7cm) LVDs4.0 (2.5-4.0cm)LA (MM) (1.9-4.0cm)Aortic Cusp Exc1.2 (1.5-2.0cm) EF (%) 45.0 (55-70%)Rt. Atrium4.0 (1.9-4.0cm)Asc. Aorta cm IVSd1.0 (0.7-1.1cm)RV (D) (1.8-2.4cm) PWd0.9 (0.7-1.1cm) Mitral Valve MitralMitral Stenosis E wave0.80m/sMV Mean GR.mmHg A wave1.00m/sMV Peak GR.mmHg E/A ratio0.82D MVAcm2 Aortic Valve Aortic ValveAortic Stenosis V11.10m/Geoffrey Mean GR.13mmHg V22.50m/Geoffrey Peak GR.27mmHg LVOT Diameter1.7 (1.8-2.4cm)Doppler AVA1.00cm2 AI P 1/2 Mydi765.97ms Tricuspid Valve TR Velocity3.00m/s [id number] Conclusion Sinus bradycardia. Biatrial enlargement. Mild aortic root enlargement. Mild aortic sclerosis without stenosis. Mild mitral annular calcification. Mild aortic sclerosis. Tricuspid and pulmonic or structurally normal. Mild thickening of the anteri or and posterior mitral leaflets. EF of 55-60% with normal RV function. Trace mitral insufficiency. Moderate aortic insufficiency. No intracardiac masses thrombi or vegetations discernible.
[2024-11-02 19:13] LABS: Free T3 2.51 pg/mL (2.3-4.2); Free T4 (Free Thyroxine) 1.1 ng/dL (0.89-1.76)
[2024-11-03] VITALS (7 sets, daily range): BP systolic 96–148; BP diastolic 53–75; PULSE 37–85; RESP 17–19; TEMP 97.6–98.5; O2SAT 90–96
--- NOTE | 2024-11-03 08:04 | ECG ---
[facility] Test Date: 2024-11-02 Test Time: 12:47:31 Pat Name: GAGAN CUEVAS Department: Room: 0286T B Gender: M Flight Kitchen Manager: [email or web address] : 1940 Requested By: MAYLIN ORTEGA Order Number: [id number] Reading MD: Ryne Baez Measurements Intervals [place] Rate: 48 P: 70 [place]: 199 QRS: 14 QRSD: 92 T: 110 QT: 431 QTc: 385 Interpretive Statements Sinus bradycardia Low voltage, extremity leads Probable anteroseptal infarct, old Nonspecific T abnormalities, lateral leads Minimal ST elevation, inferior leads Electronically Signed On 11-03-2024 9:08:20 PDT by Ryne Baez Please click the below link to view image of tracing.
[2024-11-03] MEDS: MAGNESIUM OXIDE 400 MG TAB PO SCH (09:32)
[2024-11-03 10:33] LABS: Basophils # (auto) 0 10 ^3/uL (0-0.2); Basophils % (auto) 0.7 % (0.0-2.0); Eosinophils # (auto) 0.2 10 ^3/uL (0-0.8); Hematocrit 33.6 % (41.0-53.0); Lymphocytes # (auto) 1.3 10 ^3/uL (0.4-5.4); Mean Corpuscular Hemoglobin 28.2 pg (28.0-32.0); Mean Corpuscular Hgb Conc. 32.8 g/dL (32.0-36.0); Monocytes # (auto) 0.6 10 ^3/uL (0-1.3); Monocytes % (auto) 10.7 % (0.0-12.0); Neutrophils # (auto) 3.1 10 ^3/uL (1.6-8.6); Neutrophils % (auto) 59.6 % (37.0-80.0); Platelet Count (auto) 179 10^3/uL (140-450); Red Blood Cells 3.91 10^6/uL (4.5-5.90); Red Cell Distribution Width 14.2 % (11.8-14.3); White Blood Cell 5.2 10^3/uL (4.4-10.8)
[2024-11-03 10:47] LABS: Alanine Aminotransferase 12 U/L (7-40); Albumin 3.6 g/dL (3.2-4.8); Alkaline Phosphatase 49 U/L (46-116); Anion Gap 7 (5-15); Aspartate Aminotransferase 17 U/L (13-40); BUN/Creatinine Ratio 13.6 (10.0-20.0); Bilirubin, Total 0.6 mg/dL (0.2-1.0); Blood Urea Nitrogen 15 mg/dL (9-23); Calcium 9.1 mg/dL (8.7-10.4); Carbon Dioxide 28 mmol/L (20-31); Glucose 75 mg/dL (74-106); Magnesium 2.1 mg/dL (1.6-2.6); Potassium 3.8 mmol/L (3.5-5.1); Sodium 145 mmol/L (136-145); Total Protein 6.2 g/dL (5.7-8.2)
[2024-11-03 10:48] LABS: Chloride 110 mmol/L (98-107)
--- NOTE | 2024-11-03 12:19 | DVHDS2 ---
Discharge Summary Date of Admission Oct 26, 2024 at 17:06 Date of Discharge: November 03, 2024 Admitting Diagnosis Hematuria rule out urinary tract infection Lung mass Pneumonia secondary to Gram-positive bacteria Tobacco abuse Labs/Diagnostic Data: Laboratory Results Test 11/03/24 09:53 11/02/24 14:36 10/27/24 09:13 10/26/24 17:06 White Blood Count 5.2 10^3/uL (4.4-10.8) Red Blood Count 3.91 10^6/uL (4.5-5.90) Hemoglobin 11.0 g/dL (13.5-17.5) Hematocrit 33.6 % (41.0-53.0) Mean Corpuscular Volume 86.0 fL (80.0-100.0) Mean Corpuscular Hemoglobin 28.2 pg (28.0-32.0) Mean Corpuscular Hemoglobin Concent 32.8 g/dL (32.0-36.0) Red Cell Distribution Width 14.2 % (11.8-14.3) Platelet Count 179 10^3/uL (140-450) Mean Platelet Volume 7.9 fL (6.9-10.8) Neutrophils (%) (Auto) 59.6 % (37.0-80.0) Lymphocytes (%) (Auto) 25.0 % (10.0-50.0) Monocytes (%) (Auto) 10.7 % (0.0-12.0) Eosinophils (%) (Auto) 4.0 % (0.0-7.0) Basophils (%) (Auto) 0.7 % (0.0-2.0) Neutrophils # (Auto) 3.1 10 ^3/uL (1.6-8.6) Lymphocytes # (Auto) 1.3 10 ^3/uL (0.4-5.4) Monocytes # (Auto) 0.6 10 ^3/uL (0-1.3) Eosinophils # (Auto) 0.2 10 ^3/uL (0-0.8) Basophils # (Auto) 0 10 ^3/uL (0-0.2) Nucleated Red Blood Cells 0.0 % Sodium Level 145 mmol/L (136-145) Potassium Level 3.8 mmol/L (3.5-5.1) Chloride Level 110 mmol/L (98-107) Carbon Dioxide Level 28 mmol/L (20-31) Anion Gap 7 (5-15) Blood Urea Nitrogen 15 mg/dL (9-23) Creatinine 1.10 mg/dL (0.700-1.30) Glomerular Filtration Rate Calc 67 mL/min (>90) BUN/Creatinine Ratio 13.6 (10.0-20.0) Serum Glucose 75 mg/dL (74-106) Calcium Level 9.1 mg/dL (8.7-10.4) Magnesium Level 2.1 mg/dL (1.6-2.6) Total Bilirubin 0.6 mg/dL (0.2-1.0) Aspartate Amino Transferase (AST) 17 U/L (13-40) Alanine Aminotransferase (ALT) 12 U/L (7-40) Alkaline Phosphatase 49 U/L (46-116) Total Protein 6.2 g/dL (5.7-8.2) Albumin 3.6 g/dL (3.2-4.8) Hemoglobin A1c 5.2 % A1C (<5.7) Triglycerides Level 69 mg/dL (< 150) Cholesterol Level 132 mg/dL (< 200) LDL Cholesterol 68 mg/dL (< 100) HDL Cholesterol 49 mg/dL (40-59) Thyroid Stimulating Hormone (TSH) 0.51 uIU/mL (0.55-4.78) Free Thyroxine (T4) Calculated 1.10 ng/dL (0.89-1.76) Free Triiodothyronine (T3) pg/mL 2.51 pg/mL (2.3-4.2) Prothrombin Time 10.9 sec (9.3-11.8) Prothrombin Time INR 1.03 (0.9-1.15) Activated Partial Thromboplast Time 35.9 SEC (24.5-34.5) Urine Creatinine 45.62 mg/dL (30.0-125.0) Urine Sodium 77 mmol/L (40-220) Test 10/26/24 13:50 10/26/24 13:28 Lactic Acid Level 1.3 mmol/L (0.4-2.0) Troponin I High Sensitivity 14 ng/L (</=54) Urine Color Light-yellow (Yellow) Urine Clarity Clear (Clear) Urine pH 5.0 (5.0-9.0) Urine Specific [place] 1.010 (1.001-1.035) Urine Protein Negative (Negative) Urine Ketones Negative (Negative) Urine Blood Negative /uL (Negative) Urine Nitrite Negative (Negative) Urine Bilirubin Negative (Negative) Urine Urobilinogen Normal mg/dL (Negative) Urine Leukocyte Esterase Negative /uL (Negative) Urine RBC <1 /hpf (0 - 3) Urine Microscopic WBC 1 /HPF (0-3) Urine Squamous Epithelial Cells Few /hpf (<5) Urine Bacteria None seen /hpf (None Seen) Urine Glucose Normal mg/dL (Normal) Other Laboratory Tests 11/03/24 09:53 Brief Hx & Hospital Course: This is a 84 years old male with past medical history hypertension, hyperlipidemia brought in by family member regarding to urine retention and hematuria for 2-3 days. Apparently patient had 2-3 day history urine symptoms of hematuria, burning when urination, generalized weakness and dizziness. The patient was admitted. Workup was done. Culture was collecting. Showed no growth. Patient subsequently had the chest x-ray showed: Oval-shaped presumed pulmonary mass with possible spiculation located within the left upper lobe measuring up to 3.1 cm. 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 The patient was put on IV antibiotic with Rocephin and Zithromax. The patient received physical therapy for his with in his now he able to walk more than 100 ft. I called and discussed this case with , oncologist. She recommend outpatient follow up with her so she can further workup on his lung cancer. I communicated with his daughter,Shannon, the patient in length regarding to the importance of follow up with Dr. Monae. Follow up with primary care physician 1-2 weeks. Activity as tolerated. Diet per home diet. Recommend low-salt low-cholesterol carb controlled diet. I discussed with patient in length regarding to stop smoking. I explained to him smoking which cause cancer. The patient verbally understand and he said he will quit. Physical examined HEENT: Normocephalic atraumatic pupils equal react to light and accommodation. Extraocular muscles intact, conjunctiva pink, oropharynx moist, no thrush, no exudate. Lymphatic: No lymphadenopathy Cardiovascular exam: S1, S2 was heard. No murmurs, rubs, gallops Lung: Clear on auscultation bilaterally, no wheeze, rale, rhonchi. GI: Abdominal soft, nondistended, nontenderness, positive bowel sounds. Extremity: No crepitus, cyanosis, edema. Pedal pulses present bilateral. Full range of motion. Skin: Normal turgor, no rash. Psych: Alert, oriented x3. Neurology: No focal deficits, cranial nerve II to XII grossly intact. This medical document was created using an electronic medical record system with [employer] direct computerized dictation system. Although this document has been carefully reviewed, there may still be some phonetic and typographical errors. These areas are purely typographical due to imperfections of the software programs, and do not reflect any compromise in the patient's medical care. Condition at Discharge: Stable Final Diagnosis/Problems List Hematuria secondary to urinary tract infection UTI Lung mass with biopsy report showed squamous cell carcinoma of the lung Pneumonia secondary to Gram-positive bacteria Tobacco abuse Discharge Disposition: Home Discharge Instruct/Medications Diet: Cardiac 2g Na,low cholest Activity: No Restrictions, As Tolerated Follow Up/Referral: pcp 1-2 weeks Refuge Worker per schedule Oncologist, Dr Monae per schedule Medications: Resume home meds Discharge Statement: "Patient was advised to return to the ER or call 911 if any headaches, dizziness, shortness of breath, chest pain, abdominal pain, bleeding, fevers, or worsening of medical condition. Patient was counseled about treatment plan, medications, possible side effects, patientverbalized understanding. All questions were answered to the best of my ability. This discharge took greater then 30 minutes in planning, reviewing documentation, counseling the patient, and discussing with other team members." ASSESSMENT ASSESSMENT Assessment PNA Lung cancer Bradycardia with PVC Date of Service: November 03, 2024 Billing Provider: ANN CHINO MD Common Visit Codes: 73043-SPQ/OBS DISCH DAY >30min ANN CHINO MD November 03, 2024 12:18
--- NOTE | 2024-11-03 13:58 | DVHPN2 ---
Consult Progress Note Date Seen: November 03, 2024 Subjective Review of Systems: CVS:Normal, RESPIRATORY:Normal, NEURO:Normal Objective vital signs Vital Sign Date Time Temp Pulse Resp B/P (MAP) Pulse Ox O2 Delivery O2 Flow Rate FiO2 11/03/24 12:57 97.6 60 19 148/75 (99) 96 97.6 11/03/24 08:00 Room Air* 0 21 Total Intake and Output 11/02/24 11/02/24 11/03/24 15:00 23:00 07:00 Intake Total 50 ml 1594 ml 1480 ml Output Total 650 ml Balance 50 ml 944 ml 1480 ml medications Current Medications Medications Dose Ordered Sig/Dom Route Start Time Stop Time Status Last Admin Dose Admin Sodium Chloride 10 ml Q8HR IV 10/26/24 22:00 11/03/24 05:58 10 ML Docusate Sodium 100 mg BIDPRN PRN PO 10/26/24 17:15 Acetaminophen 650 mg Q6HP PRN PO 10/26/24 17:15 10/31/24 12:05 650 MG Hydromorphone HCl 0.5 mg Q4HP PRN IV 10/26/24 17:15 Ondansetron HCl 4 mg Q4HP PRN IV 10/26/24 17:15 Ceftriaxone Sodium 50 ml @ 100 mls/hr DAILY IV 10/27/24 10:00 11/03/24 09:40 100 MLS/HR Baclofen 5 mg BID PO 10/26/24 22:00 11/03/24 09:32 5 MG Gabapentin 300 mg DAILY PO 10/27/24 10:00 11/03/24 09:31 300 MG Nicotine 1 patch DAILY TD 10/27/24 10:00 11/03/24 09:39 1 PATCH Cyanocobalamin 1,000 mcg DAILY PO 10/27/24 10:00 11/03/24 09:32 1,000 MCG Patient Own Medication 150 mg BID PO 10/26/24 22:00 Atorvastatin Calcium 10 mg HS PO 10/26/24 22:00 11/02/24 21:45 10 MG Sodium Chloride 1,000 ml @ 60 mls/hr [id number] IV 10/27/24 11:45 11/02/24 18:59 60 MLS/HR Acetaminophen/ Hydrocodone Bitart 1 tab Q4HP PRN PO 10/28/24 07:15 5/2/25 09:57 1 TAB Guaifenesin/ Dextromethorphan 10 ml Q6HPRN PRN PO 10/29/24 14:30 10/29/24 16:20 10 ML Magnesium Oxide 400 mg DAILY PO 11/03/24 10:00 11/03/24 09:32 400 MG Examination: LUNGS:Normal, CVS:Normal, NEURO:Normal laboratory and microbiology Laboratory Tests 11/03/24 09:53 Test 11/03/24 09:53 Range/Units Serum Glucose 75 74-106 mg/dL Problem List/Assessment/Plan Problem List/Assessment/Plan Asymptomatic sinus bradycardia with PVCs Hypertension Dyslipidemia Left lung nodule status post biopsy, ?malignancy Hematuria, resolved Acute kidney injury, resolved Tobacco use Dementia Plan/Recommendation (Dr. Baez) Transthoracic echocardiogram revealed EF 55-60%. Patient having episodes of asymptomatic sinus bradycardia with PVCs. Continue magnesium. No significant pauses or atrioventricular blocks noted on monitor. Avoid AV candido blocking agents. The patient denies any cardiac symptoms at time of assessment. Recommend an outpatient event monitor if deemed necessary. There is no further cardiac work-up indicated at this time. Kindly call if in need to re-consult. Thank you for allowing us to care for this patient. This medical document was created using an electronic medical record system with voice recognition software and computerized dictation system. Although this document has been carefully reviewed, there might still be some phonetic and typographical errors. Occasional wrong-word or ``sound-alike substitutions may have occurred due to the inherent limitations of voice recognition software. These areas are purely typographical due to imperfections of the software programs and do not reflect any compromise in the patient's medical care. Please read the chart carefully and recognize, using context, where these substitutions have occurred. Plan discussed with: Patient, Other Dietary Evaluation Review Recommendations by RD: Dietary education by RD, Protein Supplementation Comments: 1) Initiate Ensure Enlive qd. Encourage optimal PO intake 2) Initiate multivitamin @ 1 tb qd 3) Promote adequate hydration to prevent future UTI 4) Follow-up with oncology and pulmonology 5) Continue to monitor I&O, labs, and skin integrity Expected Outcomes/Goals: 1) appetite and labs to improve 2) f/u in 3-5 days Date of Service: November 03, 2024 Billing Provider: JONATHAN JOSÉ Cardiology Common Codes: [id number] INP/OBS CARE(Mod) JONATHAN JOSÉ November 03, 2024 13:58
== END 2024-11-03 16:00 | disposition home or self-care (01) | DRG 180 ==
LOC: ER 13:08 → OVERFLOW 17:06 → WEST WING 18:41 → TELE-WESTW 11-01 09:58 → WEST WING 11-01 09:59 → TELE-WESTW 11-01 16:20
PROVIDERS: ADMIT Internal Medicine; ATTEND Internal Medicine
PROC: 0BBL3ZX Excision of Left Lung, Percutaneous Approach, Diagnostic (ICD-10-PCS; principal; 2024-10-27)
DX: C34.91 Malignant neoplasm of unspecified part of right bronchus or lung (principal); J15.9 Unspecified bacterial pneumonia; N39.0 Urinary tract infection, site not specified; N17.9 Acute kidney failure, unspecified; N28.1 Cyst of kidney, acquired; F03.90 Unspecified dementia, unspecified severity, without behavioral disturbance, psychotic disturbance, mood disturbance, and anxiety; E78.5 Hyperlipidemia, unspecified; F17.210 Nicotine dependence, cigarettes, uncomplicated; I10 Essential (primary) hypertension; I49.3 Ventricular premature depolarization; K21.9 Gastro-esophageal reflux disease without esophagitis; Z82.49 Family history of ischemic heart disease and other diseases of the circulatory system; Z96.643 Presence of artificial hip joint, bilateral; Z79.2 Long term (current) use of antibiotics; Z79.899 Other long term (current) drug therapy; R31.9 Hematuria, unspecified
CPT/HCPCS: 10005; 36415; 71045; 71250; 74176; 76775; 77012; 80048; 80053; 80061; 81001; 82570; 83036; 83605; 83735; 84300; 84439; 84443; 84481; 84484; 85025; 85610; 85730; 87086; 93005; 93306; 96365; G0378; J2003; J2250